=== PATIENT | male | born 1970 | race Caucasian/White ===

== ENCOUNTER 2021-06-25 10:06 | Outpatient (CLI) | payer BC, SELFPAY ==
--- NOTE | ~2021-06-25 | XR_ITS ---
XR thoracic spine 3V DATE: 06/25/2021 10:34 INDICATION: Thoracic spine strain, right thoracic back pain. TECHNIQUE: AP, lateral, swimmer views COMPARISON: None FINDINGS: There is minimal thoracic scoliosis. There is degenerative spurring of the thoracic spine. No fracture or dislocation or bone destruction. The thoracic pedicles are intact. No paraspinal soft tissue thickening. IMPRESSION: Minimal thoracic scoliosis Degenerative spurring of the thoracic spine Reviewed, dictated and finalized at location A. BOAT CAPTAIN
== END 2021-06-25 10:07 | disposition home or self-care (01) ==
LOC: ANHIMG 10:13
PROVIDERS: PCP Physician Assistant; Visit Provider Physician Assistant
DX: S29.019A Strain of muscle and tendon of unspecified wall of thorax, initial encounter (principal); M41.84 Other forms of scoliosis, thoracic region; M46.04 Spinal enthesopathy, thoracic region
CPT/HCPCS: 72072

== ENCOUNTER → 2021-08-11 02:02 | Outpatient (CLI) | payer BC, SELFPAY ==
[2021-08-11 20:49] LABS: SARS-CoV-2 RNA PCR Negative
== END ==
PROVIDERS: PCP Physician Assistant; Visit Provider Physician Assistant
DX: R09.89 Other specified symptoms and signs involving the circulatory and respiratory systems (principal); Z20.822 Contact with and (suspected) exposure to COVID-19
CPT/HCPCS: C9803; U0003; U0005

== ENCOUNTER 2021-10-05 11:56 | Outpatient (CLI) | payer BC, SELFPAY ==
--- NOTE | ~2021-10-05 | XR_ITS ---
EXAMINATION: XR shoulder RT min 2V, XR scapula RT EXAM DATE: 10/05/2021 12:15 INDICATION: Right shoulder pain. TECHNIQUE: The following right shoulder projections obtained: frontal projection with internal rotati on, frontal projection with external rotation, Grashey, and axillary (4+ views). Frontal, Y projectio ns of the right scapula. There are no prior studies for comparison. FINDINGS: No evidence of right shoulder rotator cuff calcific tendinosis. There is mild glenohumer al joint, mild acromioclavicular joint primary osteoarthritis. There are no acute fractures or disloc ations identified. There is no subcutaneous gas. The soft tissue is unremarkable. There are no ra diopaque foreign bodies. IMPRESSION: Mild right shoulder osteoarthritis. Unremarkable scapula. Reviewed, dictated and finalized at location B. NING CENTER COORDINATOR IMPRESSION: Mild right shoulder osteoarthritis. Unremarkable scapula.
== END 2021-10-05 11:57 | disposition home or self-care (01) ==
LOC: ANHIMG 11:58
PROVIDERS: PCP Physician Assistant; Visit Provider Physician Assistant
DX: M25.519 Pain in unspecified shoulder (principal); M19.011 Primary osteoarthritis, right shoulder
CPT/HCPCS: 73010; 73030

== ENCOUNTER 2025-02-27 12:29 | Outpatient (CLI) | payer OTHER, SELFPAY ==
--- NOTE | ~2025-02-27 | CT_ITS ---
CLINICAL INDICATION: Umbilical hernia COMPARISON: 11/04/2014 . TECHNIQUE: Multiple contiguous axial images of the abdomen and pelvis were performed following the ad ministration of with 100 mL Omnipaque-350 intravenous contrast The dose-length product (DLP) was 1133.40 mGy-cm. Automated exposure control and iterative reconstruction technique were employed. FINDINGS/OBSERVATIONS: Visualized lower thorax: The bilateral lung bases are clear. The heart is of normal size, without pericardial effusion. Small hiatal hernia is present. Liver: The liver demonstrates homogeneously decreased enhancement and is enlarged measuring 24 cm in longitu dinal dimension. Gallbladder and biliary system: The gallbladder is only minimally distended, and contains layering, but is otherwise unremarkable. Pancreas: The pancreas enhances homogeneously without ductal dilatation. Spleen: The spleen enhances homogeneously and is not enlarged. Kidneys: The bilateral kidneys enhance symmetrically without hydronephrosis or renal calculi. Adrenal glands: Unremarkable. Gastrointestinal tract: Fecal stasis within the colon. Appendix: The appendix is not definitively visualized. However, no pericecal inflammatory change is identified suggest the presence of acute appendicitis. Vasculature: Unremarkable. Lymph nodes: No pathologically enlarged or morphologically suspicious lymph nodes within the retroperitoneum or at the root of the mesentery. Pelvic structures: The bladder is only minimally distended, and otherwise unremarkable. The prostate gland is not enlarged. Body wall and musculoskeletal: Multilobulated fat and likely omental containing umbilical hernia with infiltration of the adjacent f at and soft tissues. Age-appropriate degenerative disease within the lower thoracic and lumbosacral spine. IMPRESSION: Multilobulated fat and likely omental containing umbilical hernia with infiltration of the adjacent f at and soft tissues. Cholelithiasis. Fatty infiltration of an enlarged liver. Reviewed, dictated and finalized at location A. IMPRESSION: Multilobulated fat and likely omental containing umbilical hernia with infiltra tion of the adjacent fat and soft tissues. Cholelithiasis. Fatty infiltration of an enlarged liver.
[2025-02-27 13:03] LABS: Estimated Glomerular Filt Rate > 60
== END 2025-02-27 12:30 | disposition home or self-care (01) ==
LOC: MICIMG 12:31
PROVIDERS: PCP Physician Assistant; Visit Provider Physician Assistant
DX: K42.9 Umbilical hernia without obstruction or gangrene (principal); K80.20 Calculus of gallbladder without cholecystitis without obstruction; K76.0 Fatty (change of) liver, not elsewhere classified
CPT/HCPCS: 74177; Q9967

== ENCOUNTER 2025-07-22 00:19 | Day surgery (SDC) | payer OTHER, SELFPAY ==
[2025-07-18 15:05] VITALS: BMI 40.1
--- NOTE | 2025-07-18 15:14 | PC.NURSE ---
[facility] has started construction of its new state of the art ER which will open Spring 2026. With this, we anticipate parking may be a challenge for some our surgical patients and families. Parking spaces are limited but are available for all Surgical, obstetrics, and ER patients sharing this lot. If you arrive and find you are having a hard time finding a parking space, please note that we understand the challenges, please drive around the hospital and park near Hospital Entrance 1. When you enter this entrance, you can ask a volunteer to direct or take you back to the surgical waiting area to check in. We appreciate everyone?s understanding of these expected challenges while we build for your future. Report to the Outpatient Waiting Room, entrance under the green pavilion located off [address], at time _06:00am on date ____07/22/25___. Planned Procedure Time: ___07:30am .? Time changes happen often and if your time is changed the preop area will call you the afternoon before. - You and your visitor will be asked to self-screen and do not enter if you have any COVID symptoms. Please call surgeon if you need to reschedule. - A mask is optional within the hospital at this time. Patients may have clear liquids (water, carbonated beverages, clear teas, apple juice) until 3 hours prior to surgery with a maximum of 20 ounces. - No food from midnight until time of surgery and no smoking, or chewing tobacco (or any form of nicotine). No chewing gum, candy or mints. (04:30am) Take only the following medications with a SIP of water on the morning of surgery: ____Singulair DO NOT STOP ANY OF YOUR OTHER PRESCRIPTION MEDICATIONS PRIOR TO SURGERY EXCEPT THE FOLLOWING Hold all vitamins and supplements for 3 days per anesthesiologist. Date of last dose 07/18/25 Medications to discontinue per physician HOLD Eliquis for [address] ISLAS Date to take last dose_07/18/25 Please no make-up, nail icelandic, hairspray, perfume, deodorant, or body powder the day of surgery.? No jewelry (including any body piercings) or valuables the day of surgery, leave them at home.? Please take a shower or bath the night before, or the morning of, surgery with an antibacterial soap.? Wear comfortable, loose fitting clothing.? - Jewelry must be removed prior to entering the operating room.? Rings and piercings that are not removed may be cut off. - The hospital will not accept responsibility for valuables.? - Please leave all valuables, including medications, at home the day of surgery. If you are going home after surgery, a licensed production truck driver must drive you home.? - NO public transportation without another adult if you receive anesthesia. - We recommend that an adult stay with you for 24 hours following discharge. - We also recommend that you do not drive, make important decision, drink alcoholic beverages, or take any drugs that were not prescribed by your health care provider for at least 24 hours after your discharge time. Follow any additional instructions given to you from your surgeon. Telephone instructions given to ___Patient and asked if any additional questions and then verbalized understanding. Patient advised to call surgeon office or pre surgery nurse liaison [phone] if any additional questions.
[2025-07-22] VITALS (8 sets, daily range): BP systolic 123–136; BP diastolic 74–93; PULSE 65–89; RESP 14–21; TEMP 36.5–37; O2SAT 93–100
--- OUTSIDE RECORDS SUMMARY | 2025-07-22 00:22 | XMS_ITS | Data Portability ---
Author Organization [facility], Main Office Address [address] [place] [address] Assessment No assessment recorded. Plan of Treatment Reminders Order Date Submit Date Provider Last Modified By Organization Details Last Modified Time Details Appointments None recorded. Lab testostero ne, free + total, serum 2022 024 [email or web address] [facility], [address], [place], [address], 5 09:23:46 TSH + free T4, serum 2022 024 [email or web address] [facility], [address], [place], [address], 5 09:23:46 CBC w/ auto diff 2022 024 [email or web address] [facility], [address], [place], [address], 5 09:23:46 CMP, serum or plasma 2022 024 [email or web address] [facility], [address], [place], [address], 5 09:23:46 HbA1c (hemoglobi n A1c), blood 2022 024 [email or web address] [place] [facility], [address], [place], [address], 5 09:23:46 lipid panel, serum 2022 024 [email or web address] [facility], [address], [address], [place], [address], 5 09:23:46 PSA, serum or plasma 2022 023 [place] [facility], [address], [address], [place], [address], 13:45:27 testostero ne, free + total, serum 2022 023 [place] [facility], [address], [address], [place], [address], 13:45:28 TSH + free T4, serum 2022 023 KRISTEN [place] [facility], [address], [address], [place], [address], 3 13:45:20 CBC w/ auto diff 2022 023 [email or web address] [facility], [address], [address], [place], [address], 13:45:25 CMP, serum or plasma 2022 023 [place] [facility], [address], [place], [address], 3 13:45:22 urinalysis , complete 2022 023 [place] [facility], [address], [place], [address], 3 13:45:26 HbA1c (hemoglobi n A1c), blood 2022 023 [place] [facility], [address], [place], [address], 3 13:45:24 microalbum in/creatin ine, mass ratio, urine 2022 023 [facility] [place] [facility], [address], [place], [address], 3 13:45:19 lipid panel, serum 2022 023 [facility] [place] [facility], [address], [place], [address], 3 13:45:21 Referral None recorded. Procedures None recorded. Surgeries None recorded. Imaging None recorded. Medication Orders None recorded. Patient TargetsNo targets recorded. Patient InstructionsNo instructions recorded. Reason for Referral None Reported. Results Created Date Observation Date Name Description Value Unit Range Abnormal Flag Note LastModifiedBy Organization Detail LastModifiedTime 09/15/19 22 09/17/2021 CULTU RE, URINE , ROUTI NE culture, urine, routine CULTU RE, URINE , ROUTI NE Micro Numbe r: [id number] Test Statu s: Final Speci men Sourc e: Urine , clean catch Speci men Quali ty: Adequ ate Resul t: No Growt h Not Available [facility] [address] [place], [address], 09/17/2021 19:36:22 09/15/19 22 09/17/2021 TESTO STERO NE, TOTAL , MS testosterone , total, MS 280 NG/dL 250-11 00 Men with clini rey signi fican t hypog onada l sympt oms and testo stero ne value s repea tedly in the range of the 200-3 00 ng/dL or less, may benef it from teste makenzie treat ment after adequ ate risk and benef its couns eling . For addit ional lisa arevalo e refer to https ://ed rolyati on.qu faiza ConsumerBell. com/f aq/To Mekhi rodriguez LCMSM S (This link is being provi ded for infor alonzo nal/e ducat ional purpo ses only. ) (Note ) This test was devel oped and its shreya tical perfo rmanc e jaime cteri stics have been deter mined by [employer]. It has not been clear ed or appro nhi by the FDA. This assay has been valid ated pursu ant to the CLIA regul ation s and is used for clini laura purpo ses. [facility] med jermaine n [address] [facility] [address] [place] [address] [phone] Leonel levin MD Not Available [place] [facility] [address] [place], [address], 09/17/2021 19:36:22 09/15/19 22 09/17/2021 PSA, TOTAL PSA, total 0.16 NG/mL < or = 4.00 normal The total PSA value from this assay syste m is stand ardiz ed again st the WHO stand robert. The test resul t will be appro ximat aaron 20% lower when bradford red to the equim olar- stand ardiz ed total PSA (Gould man Coult er). Bradford rison of seria l PSA resul ts shoul d be inter prete d with this fact in mind. This test was perfo rmed using the Sieme ns chemi lumin escen t metho d. Value s obtai flavio from diffe rent assay metho ds canno t be used inter barrera eably . PSA level s, regar dless of value , shoul d not be inter prete d as absol [place] evide nce of the prese nce or absen ce of disea se. Not Available [facility] [address] [place], [address], 09/17/2021 19:36:21 09/15/19 22 09/17/2021 CBC (INCL UDES DIFF/ PLT) white blood cell count 8.0 thous and/u L 3.8-10 .8 normal Not Available [facility] [address] [place], [address], 09/17/2021 19:36:21 09/15/19 22 09/17/2021 CBC (INCL UDES DIFF/ PLT) red blood cell count 5.06 miki on/uL 4.20-5 .80 normal Not Available [address], [address], 09/17/2021 19:36:21 09/15/19 22 09/17/2021 CBC (INCL UDES DIFF/ PLT) hemoglobin 14.9 g/dL 13.2-1 7.1 normal Not Available [address], [address], 09/17/2021 19:36:21 09/15/19 22 09/17/2021 CBC (INCL UDES DIFF/ PLT) hematocrit 44.9 % 38.5-5 0.0 normal Not Available [address], [address], 09/17/2021 19:36:21 09/15/19 22 09/17/2021 CBC (INCL UDES DIFF/ PLT) MCV 88.7 fL 80.0-1 00.0 normal Not Available [address], [address], 09/17/2021 19:36:21 09/15/19 22 09/17/2021 CBC (INCL UDES DIFF/ PLT) MCH 29.4 pg 27.0-3 3.0 normal Not Available [address], [address], 09/17/2021 19:36:21 09/15/19 22 09/17/2021 CBC (INCL UDES DIFF/ PLT) MCHC 33.2 g/dL 32.0-3 6.0 normal Not Available [address], [address], 09/17/2021 19:36:21 09/15/19 22 09/17/2021 CBC (INCL UDES DIFF/ PLT) RDW 12.2 % 11.0-1 5.0 normal Not Available [address], [address], 09/17/2021 19:36:21 09/15/19 22 09/17/2021 CBC (INCL UDES DIFF/ PLT) platelet count 231 thous and/u L 140-40 0 normal Not Available [address], [address], 09/17/2021 19:36:21 09/15/19 22 09/17/2021 CBC (INCL UDES DIFF/ PLT) MPV 11.8 fL 7.5-12 .5 normal Not Available [address], [address], 09/17/2021 19:36:21 09/15/19 22 09/17/2021 CBC (INCL UDES DIFF/ PLT) absolute neutrophils 4904 cells /uL 1500-7 800 normal Not Available [address], [address], 09/17/2021 19:36:21 09/15/19 22 09/17/2021 CBC (INCL UDES DIFF/ PLT) absolute lymphocytes 2336 cells /uL 850-39 00 normal Not Available [address], [address], 09/17/2021 19:36:21 09/15/19 22 09/17/2021 CBC (INCL UDES DIFF/ PLT) absolute monocytes 592 cells /uL 200-95 0 normal Not Available [address], [address], 09/17/2021 19:36:21 09/15/19 22 09/17/2021 CBC (INCL UDES DIFF/ PLT) absolute eosinophils 120 cells /uL 15-500 normal Not Available [address], [address], 09/17/2021 19:36:21 09/15/19 22 09/17/2021 CBC (INCL UDES DIFF/ PLT) absolute basophils 48 cells /uL 0-200 normal Not Available [address], [address], 09/17/2021 19:36:21 09/15/19 22 09/17/2021 CBC (INCL UDES DIFF/ PLT) neutrophils 61.3 % normal Not Available [address], [address], 09/17/2021 19:36:21 09/15/19 22 09/17/2021 CBC (INCL UDES DIFF/ PLT) lymphocytes 29.2 % normal Not Available [address], [address], 09/17/2021 19:36:21 09/15/19 22 09/17/2021 CBC (INCL UDES DIFF/ PLT) monocytes 7.4 % normal Not Available [address], [address], 09/17/2021 19:36:21 09/15/19 22 09/17/2021 CBC (INCL UDES DIFF/ PLT) eosinophils 1.5 % normal Not Available [address], [address], 09/17/2021 19:36:21 09/15/19 22 09/17/2021 CBC (INCL UDES DIFF/ PLT) basophils 0.6 % normal Not Available [address], [address], 09/17/2021 19:36:21 09/15/19 22 09/17/2021 HEMOG LOBIN A1C hemoglobin A1C 7.3 %_of_ total _HGB <5.7 high For someo ne witho ut known diabe tuan, a hemog lobin A1c value of 6.5% or great er indic ates that they may have diabe tuan and this shoul d be confi rmed with a follo w-up test. For someo ne with known diabe tuan, a value <7% indic ates that their diabe tuan is well contr olled and a value great er than or equal to 7% indic ates subop timal contr ol. A1c targe ts shoul d be indiv idual ized based on durat ion of diabe tuan, age, comor bid condi tions , and other consi derat ions. Curre ntly, no conse nsus exist s regar ding use of hemog lobin A1c for diagn osis of diabe tuan for child ruth. Not Available [facility] [address] [place], [address], 09/17/2021 19:36:20 09/15/19 22 09/17/2021 COMPR EHENS KHADAR METAB OLIC PANEL glucose 126 mg/dL 65-99 high Fasti ng refer ence inter genet For someo ne witho ut known diabe tuan, a gluco se value >125 mg/dL indic ates that they may have diabe tuan and this shoul d be confi rmed with a follo w-up test. Not Available [facility] [place] [address] [place], [address], 09/17/2021 19:36:20 09/15/19 22 09/17/2021 COMPR EHENS KHADAR METAB OLIC PANEL urea nitrogen (BUN) 23 mg/dL 7-25 normal Not Available [facility] [address] [place], [address], 09/17/2021 19:36:20 09/15/19 22 09/17/2021 COMPR EHENS KHADAR METAB OLIC PANEL creatinine 0.92 mg/dL 0.60-1 .35 normal Not Available [facility] [address] [place], [address], 09/17/2021 19:36:20 09/15/19 22 09/17/2021 COMPR EHENS KHADAR METAB OLIC PANEL eGFR non-afr. north korean 98 mL/mi n/1.7 3m2 > or = 60 normal Not Available [place] [address] [place], [address], 09/17/2021 19:36:20 09/15/19 22 09/17/2021 COMPR EHENS KHADAR METAB OLIC PANEL eGFR 114 mL/mi n/1.7 3m2 > or = 60 normal Not Available [address], [address], 09/17/2021 19:36:20 09/15/19 22 09/17/2021 COMPR EHENS KHADAR METAB OLIC PANEL BUN/creatini ne ratio not applic able (calc ) 6-22 Not Available [address], [address], 09/17/2021 19:36:20 09/15/19 22 09/17/2021 COMPR EHENS KHADAR METAB OLIC PANEL sodium 136 mmol/ L 135-14 6 normal Not Available [address], [address], 09/17/2021 19:36:20 09/15/19 22 09/17/2021 COMPR EHENS KHADAR METAB OLIC PANEL potassium 3.9 mmol/ L 3.5-5. 3 normal Not Available [address], [address], 09/17/2021 19:36:20 09/15/19 22 09/17/2021 COMPR EHENS KHADAR METAB OLIC PANEL chloride 101 mmol/ L 98-110 normal Not Available [address], [address], 09/17/2021 19:36:20 09/15/19 22 09/17/2021 COMPR EHENS KHADAR METAB OLIC PANEL carbon dioxide 28 mmol/ L 20-32 normal Not Available [place] [address] [place], [address], 09/17/2021 19:36:20 09/15/19 22 09/17/2021 COMPR EHENS KHADAR METAB OLIC PANEL calcium 9.2 mg/dL 8.6-10 .3 normal Not Available [address], [address], 09/17/2021 19:36:20 09/15/19 22 09/17/2021 COMPR EHENS KHADAR METAB OLIC PANEL protein, total 7.5 g/dL 6.1-8. 1 normal Not Available [address], [address], 09/17/2021 19:36:20 09/15/19 22 09/17/2021 COMPR EHENS KHADAR METAB OLIC PANEL albumin 4.5 g/dL 3.6-5. 1 normal Not Available [address], [address], 09/17/2021 19:36:20 09/15/19 22 09/17/2021 COMPR EHENS KHADAR METAB OLIC PANEL globulin 3.0 g/dL_ (calc ) 1.9-3. 7 normal Not Available [address], [address], 09/17/2021 19:36:20 09/15/19 22 09/17/2021 COMPR EHENS KHADAR METAB OLIC PANEL albumin/glob ulin ratio 1.5 (calc ) 1.0-2. 5 normal Not Available [address], [address], 09/17/2021 19:36:20 09/15/19 22 09/17/2021 COMPR EHENS KHADAR METAB OLIC PANEL ALT 49 U/L 9-46 high Not Available [address], [address], 09/17/2021 19:36:20 09/15/19 22 09/17/2021 COMPR EHENS KHADAR METAB OLIC PANEL bilirubin, total 1.0 mg/dL 0.2-1. 2 normal Not Available [address], [address], 09/17/2021 19:36:20 09/15/19 22 09/17/2021 COMPR EHENS KHADAR METAB OLIC PANEL alkaline phosphatase 70 U/L 36-130 normal Not Available [facility] [address], [address], 09/17/2021 19:36:20 09/15/19 22 09/17/2021 COMPR EHENS KHADAR METAB OLIC PANEL AST 36 U/L 10-40 normal Not Available [address], [address], 09/17/2021 19:36:20 09/15/19 22 09/17/2021 LIPID PANEL WITH REFLE X TO DIREC T LDL cholesterol, total 119 mg/dL <200 normal Not Available [address], [address], 09/17/2021 19:36:20 09/15/19 22 09/17/2021 LIPID PANEL WITH REFLE X TO DIREC T LDL HDL cholesterol 32 mg/dL > or = 40 low Not Available [address], [address], 09/17/2021 19:36:20 09/15/19 22 09/17/2021 LIPID PANEL WITH REFLE X TO DIREC T LDL triglyceride s 120 mg/dL <150 normal Not Available [address], [address], 09/17/2021 19:36:20 09/15/19 22 09/17/2021 LIPID PANEL WITH REFLE X TO DIREC T LDL LDL-choleste rol 66 mg/dL _(laura c) normal Refer ence range : <100 Adry able range <100 mg/dL for prima ry preve ntion ; <70 mg/dL for patie nts with CHD or diabe tic patie nts with > or = 2 CHD risk facto rs. LDL-C is now calcu lated using the [facility] korey coughlin n, which is a valid ated novel metho d yanirai liz rylee r accur acy than the Fried jose equat ion in the estim ation of LDL-C . Roma mason SS et al. RADHA. 2013; 310(1 9): 2061- 2068 (http ://ed ucati on.Qu estDi Nohms Technologiesos Guest [employer] a Guests. com/f aq/FA Q164) Not Available [place] [address] [place], [address], 09/17/2021 19:36:20 09/15/19 22 09/17/2021 LIPID PANEL WITH REFLE X TO DIREC T LDL chol/HDLC ratio 3.7 (calc ) <5.0 normal Not Available [place] [address], [address], 09/17/2021 19:36:20 09/15/19 22 09/17/2021 LIPID PANEL WITH REFLE X TO DIREC T LDL non HDL cholesterol 87 mg/dL _(laura c) <130 normal For patie nts with diabe tuan plus 1 major ASCVD risk facto r, treat ing to a non-H DL-C goal of <100 mg/dL (LDL- C of <70 mg/dL ) is consi yanethd a austina peluisi c optio n. Not Available [place] [address] [place] [address] [place], [address], 09/17/2021 19:36:20 09/15/19 22 09/17/2021 TSH+F REE T4 TSH 1.22 mIU/L 0.40-4 .50 normal Not Available [facility] [address] [address] [place], [address], 09/17/2021 19:36:19 09/15/19 22 09/17/2021 TSH+F REE T4 T4, free 1.0 NG/dL 0.8-1. 8 normal Not Available [address], [address], 09/17/2021 19:36:19 09/15/19 22 09/17/2021 ALBUM IN, RANDO M URINE W/CRE ATINI NE albumin/crea tinine ratio, random urine 8 mcg/m g_cre at <30 normal The ADA defin es abnor malit ies in album in excre tion as follo ws: Album inuri a Categ ory Resul t (mcg/ mg creat inine ) Jennifer l to Mildl y incre ased <30 Moder ately incre ased 30-29 9 Sever aaron incre ased > OR = 300 The ADA recom mends that at least two of three speci mens colle cted withi n a 3-6 month perio d be abnor mal befor e consi sherlyn g a patie nt to be withi n a diagn ostic categ ory. Not Available [address] [place], [address], 09/17/2021 19:36:18 09/15/19 22 09/17/2021 ALBUM IN, RANDO M URINE W/CRE ATINI NE creatinine, random urine 86 mg/dL 20-320 normal Not Available [address], [address], 09/17/2021 19:36:18 09/15/19 22 09/17/2021 ALBUM IN, RANDO M URINE W/CRE ATINI NE albumin, urine 0.7 mg/dL see note: normal Refer ence Range : Refer ence Range Not estab lishe d Not Available [address], [address], 09/17/2021 19:36:18 06/25/20 22 06/25/2022 COLOG UARD cologuard result reportable negati ve negati ve NEGAT KHADAR TEST RESUL T. A negat khadar Colog uard resul t indic ates a low likel ihood that a color ectal cance r (CRC) or advan crystal adeno ma (mica omato us polyp s with more advan crystal pre-m align ant featu res) is prese nt. The [facility] e that a perso n with a negat khadar Colog uard test has a color ectal cance r is less than 1 in 1500 (nega tive predi ctive value >99.9 %) or has an advan crystal adeno ma is less than 5.3% (nega tive predi ctive value 94.7% ). These data are based on a prosp ectiv e cross -sect ional study of ,00 0 indiv idual s at [place] risk for color ectal cance r who were scree flavio with both Colog uard and colon oscop y. (Roshan Loving et al, N Engl J Med 2014; 370(1 4):12 86-12 97) The jennifer l value (refe rence range ) for this assay is negat khadar. COLOG UARD RE-SC REELIZ ALMAZAN RECOM MENDA TION: Perio dic color ectal cance r scree apoorva is an impor tant part of preve ntive healt hcare for asymp tomat ic indiv idual s at [place] risk for color ectal cance r. Follo wing a negat khadar Colog uard resul t, the Ameri can Cance r Socie ty and U.S. Multi -Soci ety Task Force scree apoorva guide lines recom mend a Colog uard re-sc reeliz almazan inter genet of 3 years . Refer ences : Ameri can Cance r Socie ty Guide line for Color ectal Cance r Scree apoorva: https ://ww w.can cer.o rg/ca ncer/ colon -rect al-ca ncer/ detec tion- diagn osis- stagi ng/ac s-rec ommen datio ns.ht ml.; Aj HAMILTON, Jolene HUFFMAN, Julio Cesar BARNETT, Color ectal Cance r Scree apoorva: Recom menda tions for Physi cians and Patie nts from the U.S. Multi -Soci ety Task Force on Color ectal Cance r Scree apoorva , Am J Magy shoemakernte rolog y 2017; 112:1 016-1 030. TEST DESCR IPTIO N: [place] site algor ithmi c shreya sis of stool DNA-b coco alfredo with hemog lobin immun oassa y. Quant itati ve value s of indiv idual bioma rkers are not repor table and are not assoc iated with indiv idual bioma rker resul t refer ence range s. Colog uard is inten ded for color ectal cance r scree apoorva of adult s of eithe r sex, 45 years or older , who are at [facility] for color ectal cance r (CRC) . Colog uard has been appro nhi for use by the U.S. FDA. The perfo rmanc e of Colog uard was estab lishe d in a cross secti onal study of [facility] adult s aged 50-84 . Colog uard perfo rmanc e in patie nts ages 45 to 49 years was estim ated by sub-g roup shreya sis of near- age group s. Colon oscop ies perfo rmed for a posit khadar resul t may find as the most clini rey signi connie trammell lesio n: color ectal cance r [4.0% ], advan crystal adeno ma (incl uding sessi le jayshree aure polyp s great er than or equal to 1cm diame ter) [20%] or non- advan crystal adeno ma [31%] ; or no color ectal neopl melvin [45%] . These estim ates are deriv ed from a prosp ectiv e cross -sect ional scree apoorva study of ,00 0 indiv idual s at [facility] risk for color ectal cance r who were scree flavio with both Colog uard and colon oscop y. (Roshan [place] al, N Engl J Med 2014; 370(1 4):12 86-12 97.) Colog uard may produ ce a false negat khadar or false posit khadar resul t (no color ectal cance r or preca ncero us polyp prese nt at colon oscop y follo w up). A negat khadar Colog uard test resul t does not guara ntee the absen ce of CRC or advan crystal adeno ma (pre- cance r). The curre nt Colog uard scree apoorva inter genet is every 3 years . (Ammello ican Cance r Socie ty and U.S. Multi -Soci ety Task Force ). Colog uard perfo rmanc e data in a 10,00 0 patie nt pivot al study using colon oscop y as the refer ence metho d can be acces sed at the follo wing locat ion: www.e xactl abs.c om/re sults . Addit ional descr iptio n of the Colog uard test proce ss, warni ngs and preca ution s can be found at www.c nixonu robert.c om. Not Available [facility] [address], [place], [address], 06/30/2022 05:38:51 10/30/19 23 10/30/2022 LIPID PANEL WITH RATIO S cholesterol, total 108 mg/dL <200 normal Not Available [facility] [address] [address] [place], [address], 10/30/2022 12:06:11 10/30/19 23 10/30/2022 LIPID PANEL WITH RATIO S HDL cholesterol 32 mg/dL > or = 40 low Not Available [facility] [address] [place], [address], 10/30/2022 12:06:11 10/30/19 23 10/30/2022 LIPID PANEL WITH RATIO S triglyceride s 121 mg/dL <150 normal Not Available [facility] [address] [place], [address], 10/30/2022 12:06:11 10/30/19 23 10/30/2022 LIPID PANEL WITH RATIO S LDL-choleste rol 56 mg/dL _(laura c) normal Refer ence range : <100 Adry able range <100 mg/dL for prima ry preve ntion ; <70 mg/dL for patie nts with CHD or diabe tic patie nts with > or = 2 CHD risk facto rs. LDL-C is now calcu lated using the [facility] kins korey mason, which is a valid ated novel getachew lopez than the Fried jose tobiasat ion in the estim ation of LDL-C . Roma mason SS et al. RADHA. 2013; 310(1 9): 2061- 2068 (http ://ed ucati on.Qu Faiza evelinaDecisionPoint Systemss. com/f aq/FA Q164) Not Available [facility] [address] [place], [address], 10/30/2022 12:06:11 10/30/1910/30/2022 LIPID PANEL WITH RATIO S chol/HDLC ratio 3.4 (calc ) <5.0 normal Not Available [facility] [address] [address] [place], [address], 10/30/2022 12:06:11 10/30/19 23 10/30/2022 LIPID PANEL WITH RATIO S LDL/HDL ratio 1.8 (calc ) [place] Risk: <2.28 [place] Risk: 2.29- 4.90 Moder ate Risk: 4.91- 7.12 High Risk: >7.13 Not Available [facility] [address] [place], [address], 10/30/2022 12:06:11 10/30/19 23 10/30/2022 LIPID PANEL WITH RATIO S non HDL cholesterol 76 mg/dL _(laura c) <130 normal For patie nts with diabe tuan plus 1 major ASCVD risk facto r, treat ing to a non-H DL-C goal of <100 mg/dL (LDL- C of <70 mg/dL ) is devin blake optio n. Not Available [facility] [address] [address] [place], [address], 10/30/2022 12:06:11 0310/30/2022 BASIC METAB OLIC PANEL glucose 102 mg/dL 65-99 high Fasti ng refer ence inter genet For someo ne witho ut known diabe tuan, a gluco se value betwe en 100 and 125 mg/dL is consi stent with predi abete s and shoul d be confi rmed with a follo w-up test. Not Available [facility] [address] [address] [place], [address], 10/30/2022 12:06:12 10/30/1910/30/2022 BASIC METAB OLIC PANEL urea nitrogen (BUN) 19 mg/dL 7-25 normal Not Available [address], [address], 10/30/2022 12:06:12 10/30/1910/30/2022 BASIC METAB OLIC PANEL creatinine 0.93 mg/dL 0.60-1 .29 normal Not Available [facility] [place] [address] [place], [address], 10/30/2022 12:06:12 10/30/1910/30/2022 BASIC METAB OLIC PANEL eGFR 101 mL/mi n/1.7 3m2 > or = 60 normal The eGFR is based on the CKD-E PI 2020 equat ion. To calcu late the new eGFR from a previ ous Creat inine or Cysta tin C resul t, go to https ://triny oseguera/luli wolf s/ kdoqi /gfr% 5Fcal culat or Not Available [facility] [address] [address] [place], [address], 10/30/2022 12:06:12 10/30/1910/30/2022 BASIC METAB OLIC PANEL BUN/creatini ne ratio NOT APPLIC ABLE (calc ) 6-22 Not Available [facility] [address] [address] [place], [address], 10/30/2022 12:06:12 10/30/1910/30/2022 BASIC METAB OLIC PANEL sodium 137 mmol/ L 135-14 6 normal Not Available [address], [address], 10/30/2022 12:06:12 10/30/1910/30/2022 BASIC METAB OLIC PANEL potassium 4.1 mmol/ L 3.5-5. 3 normal Not Available [address], [address], 10/30/2022 12:06:12 10/30/1910/30/2022 BASIC METAB OLIC PANEL chloride 103 mmol/ L 98-110 normal Not Available [address], [address], 10/30/2022 12:06:12 10/30/1910/30/2022 BASIC METAB OLIC PANEL carbon dioxide 26 mmol/ L 20-32 normal Not Available [address], [address], 10/30/2022 12:06:12 10/30/1910/30/2022 BASIC METAB OLIC PANEL calcium 8.9 mg/dL 8.6-10 .3 normal Not Available [address], [address], 10/30/2022 12:06:12 10/30/1910/30/2022 HEMOG LOBIN A1C hemoglobin A1C 6.2 %_of_ total _HGB <5.7 high For someo ne witho ut known diabe tuan, a hemog lobin A1c value betwe en 5.7% and 6.4% is consi stent with predi abete s and shoul d be confi rmed with a follo w-up test. For someo ne with known diabe tuan, a value <7% indic ates that their diabe tuan is well contr olled . A1c targe ts shoul d be indiv idual ized based on durat ion of diabe tuan, age, comor bid condi tions , and other consi derat ions. This assay resul t is consi stent with an incre ased risk of diabe tuan. Curre ntly, no conse nsus exist s [place] use of hemog lobin A1c for diagn osis of diabe tuan for child ruth. Not Available [address] [address] [place], [address], 10/30/2022 12:06:13 10/30/19 23 10/30/2022 HEPAT IC FUNCT ION PANEL protein, total 7.4 g/dL 6.1-8. 1 normal Not Available [address], [address], 10/30/2022 12:06:13 10/30/1910/30/2022 HEPAT IC FUNCT ION PANEL albumin 4.2 g/dL 3.6-5. 1 normal Not Available [facility] [address] [address] [place], [address], 10/30/2022 12:06:13 10/30/19 23 10/30/2022 HEPAT IC FUNCT ION PANEL globulin 3.2 g/dL_ (calc ) 1.9-3. 7 normal Not Available [address] [address] [place], [address], 10/30/2022 12:06:13 10/30/19 23 10/30/2022 HEPAT IC FUNCT ION PANEL albumin/glob ulin ratio 1.3 (calc ) 1.0-2. 5 normal Not Available [facility] [address] [address] [place], [address], 10/30/2022 12:06:13 10/30/1910/30/2022 HEPAT IC FUNCT ION PANEL bilirubin, total 1.0 mg/dL 0.2-1. 2 normal Not Available [facility] [address] [address] [place], [address], 10/30/2022 12:06:13 10/30/19 23 10/30/2022 HEPAT IC FUNCT ION PANEL bilirubin, direct 0.2 mg/dL < or = 0.2 normal Not Available [address], [address], 10/30/2022 12:06:13 10/30/19 23 10/30/2022 HEPAT IC FUNCT ION PANEL bilirubin, indirect 0.8 mg/dL _(laura c) 0.2-1. 2 normal Not Available [address], [address], 10/30/2022 12:06:13 10/30/1910/30/2022 HEPAT IC FUNCT ION PANEL alkaline phosphatase 77 U/L 36-130 normal Not Available [address], [address], 10/30/2022 12:06:13 10/30/1910/30/2022 HEPAT IC FUNCT ION PANEL AST 26 U/L 10-40 normal Not Available [address], [address], 10/30/2022 12:06:13 10/30/19 23 10/30/2022 HEPAT IC FUNCT ION PANEL ALT 38 U/L 9-46 normal Not Available [address], [address], 10/30/2022 12:06:13 06/03/2006/07/2023 ALBUM IN, RANDO M URINE W/CRE ATINI NE creatinine, random urine 82 mg/dL 20-320 normal Not Available [address], [address], 06/07/2023 13:45:19 06/03/2006/07/2023 ALBUM IN, RANDO M URINE W/CRE ATINI NE albumin, urine 2.2 mg/dL see note: normal Refer ence Range : Refer ence Range Not estab lishe d Not Available [address], [address], 06/07/2023 13:45:19 06/03/2006/07/2023 ALBUM IN, RANDO M URINE W/CRE ATINI NE albumin/crea tinine ratio, random urine 27 mcg/m g_cre at <30 normal The ADA defin es abnor malit ies in album in excre tion as follo ws: Album inuri a Categ ory Resul t (mcg/ mg creat inine ) Jennifer l to Mildl y incre ased <30 Moder ately incre ased 30-29 9 Sever aaron incre ased > OR = 300 The ADA recom mends that at least two of three speci mens colle cted withi n a 3-6 month perio d be abnor mal befor e consi sherlyn g a patie nt to be withi n a diagn ostic categ ory. Not Available [address], [address], 06/07/2023 13:45:19 06/03/20 23 06/07/2023 TSH+F REE T4 TSH 1.36 mIU/L 0.40-4 .50 normal Not Available [address], [address], 06/07/2023 13:45:20 06/03/20 23 06/07/2023 TSH+F REE T4 T4, free 0.9 NG/dL 0.8-1. 8 normal Not Available [address], [address], 06/07/2023 13:45:20 06/03/20 23 06/07/2023 LIPID PANEL WITH RATIO S cholesterol, total 115 mg/dL <200 normal Not Available [address], [address], 06/07/2023 13:45:21 06/03/20 23 06/07/2023 LIPID PANEL WITH RATIO S HDL cholesterol 31 mg/dL > or = 40 low Not Available [address] [address] [place], [address], 06/07/2023 13:45:21 06/03/20 23 06/07/2023 LIPID PANEL WITH RATIO S triglyceride s 149 mg/dL <150 normal Not Available [address] [address] [place], [address], 06/07/2023 13:45:21 06/03/20 23 06/07/2023 LIPID PANEL WITH RATIO S LDL-choleste rol 61 mg/dL _(laura c) normal Refer ence range : <100 Adry able range <100 mg/dL for prima ry preve ntion ; <70 mg/dL for patie nts with CHD or diabe tic patie nts with > or = 2 CHD risk facto rs. LDL-C is now calcu lated using the Roma n-Hop kins calcu madyson n, which is a valid ated novel getachew mckee r accur acy than the Fried jose equat ion in the estim ation of LDL-C . Roma mason SS et al. RADHA. 2013; 310(1 9): 2061- 2068 (http ://ed ucati on.Juan Antonio oMdi ConsumerBell. com/f aq/FA Q164) Not Available [address] [address] [place], [address], 06/07/2023 13:45:21 06/03/20 23 06/07/2023 LIPID PANEL WITH RATIO S chol/HDLC ratio 3.7 (calc ) <5.0 normal Not Available [address] [address] [place], [address], 06/07/2023 13:45:21 06/03/20 23 06/07/2023 LIPID PANEL WITH RATIO S LDL/HDL ratio 2.0 (calc ) Below [place] Risk: <2.28 [place] Risk: 2.29- 4.90 Moder ate Risk: 4.91- 7.12 High Risk: >7.13 Not Available [address] [address] [place], [address], 06/07/2023 13:45:21 06/03/2006/07/2023 LIPID PANEL WITH RATIO S non HDL cholesterol 84 mg/dL _(laura c) <130 normal For patie nts with diabe tuan plus 1 major ASCVD risk facto r, treat ing to a non-H DL-C goal of <100 mg/dL (LDL- C of <70 mg/dL ) is consi dered a thera peuti c optio n. Not Available [address] [address] [place], [address], 06/07/2023 13:45:21 06/03/20 23 06/07/2023 COMPR EHENS KHADAR METAB OLIC PANEL glucose 87 mg/dL 65-99 normal Fasti ng refer ence inter genet Not Available [address] [address] [place], [address], 06/07/2023 13:45:22 06/03/20 23 06/07/2023 COMPR EHENS KHADAR METAB OLIC PANEL urea nitrogen (BUN) 21 mg/dL 7-25 normal Not Available [address], [address], 06/07/2023 13:45:22 06/03/20 23 06/07/2023 COMPR EHENS KHADAR METAB OLIC PANEL creatinine 0.86 mg/dL 0.70-1 .30 normal Not Available [address] [address] [place], [address], 06/07/2023 13:45:22 06/03/20 23 06/07/2023 COMPR EHENS KHADAR METAB OLIC PANEL eGFR 105 mL/mi n/1.7 3m2 > or = 60 normal Not Available [address] [address] [place], [address], 06/07/2023 13:45:22 06/03/20 23 06/07/2023 COMPR EHENS KHADAR METAB OLIC PANEL BUN/creatini ne ratio SEE NOTE: (calc ) 6-22 Not Repor aure: BUN and Creat inine are withi n refer ence range . Not Available [address], [address], 06/07/2023 13:45:22 06/03/20 23 06/07/2023 COMPR EHENS KHADAR METAB OLIC PANEL sodium 136 mmol/ L 135-14 6 normal Not Available [address], [address], 06/07/2023 13:45:22 06/03/20 23 06/07/2023 COMPR EHENS KHADAR METAB OLIC PANEL potassium 4.1 mmol/ L 3.5-5. 3 normal Not Available [address], [address], 06/07/2023 13:45:22 06/03/20 23 06/07/2023 COMPR EHENS KHADAR METAB OLIC PANEL chloride 103 mmol/ L 98-110 normal Not Available [address], [address], 06/07/2023 13:45:22 06/03/20 23 06/07/2023 COMPR EHENS KHADAR METAB OLIC PANEL carbon dioxide 25 mmol/ L 20-32 normal Not Available [address], [address], 06/07/2023 13:45:22 06/03/20 23 06/07/2023 COMPR EHENS KHADAR METAB OLIC PANEL calcium 9.2 mg/dL 8.6-10 .3 normal Not Available [address], [address], 06/07/2023 13:45:22 06/03/20 23 06/07/2023 COMPR EHENS KHADAR METAB OLIC PANEL protein, total 7.6 g/dL 6.1-8. 1 normal Not Available [address], [address], 06/07/2023 13:45:22 06/03/20 23 06/07/2023 COMPR EHENS KHADAR METAB OLIC PANEL albumin 4.3 g/dL 3.6-5. 1 normal Not Available [address], [address], 06/07/2023 13:45:22 06/03/20 23 06/07/2023 COMPR EHENS KHADAR METAB OLIC PANEL globulin 3.3 g/dL_ (calc ) 1.9-3. 7 normal Not Available [address], [address], 06/07/2023 13:45:22 06/03/20 23 06/07/2023 COMPR EHENS KHADAR METAB OLIC PANEL albumin/glob ulin ratio 1.3 (calc ) 1.0-2. 5 normal Not Available [address], [address], 06/07/2023 13:45:22 06/03/20 23 06/07/2023 COMPR EHENS KHADAR METAB OLIC PANEL bilirubin, total 0.8 mg/dL 0.2-1. 2 normal Not Available [address], [address], 06/07/2023 13:45:22 06/03/20 23 06/07/2023 COMPR EHENS KHADAR METAB OLIC PANEL alkaline phosphatase 73 U/L 35-144 normal Not Available [address] [address] [place], [address], 06/07/2023 13:45:22 06/03/20 23 06/07/2023 COMPR EHENS KHADAR METAB OLIC PANEL AST 28 U/L 10-35 normal Not Available [address], [address], 06/07/2023 13:45:22 06/03/20 23 06/07/2023 COMPR EHENS KHADAR METAB OLIC PANEL ALT 40 U/L 9-46 normal Not Available [address], [address], 06/07/2023 13:45:22 06/03/20 23 06/07/2023 HEMOG LOBIN A1C hemoglobin A1C 5.9 %_of_ total _HGB <5.7 high For someo ne witho ut known diabe tuan, a hemog lobin A1c value betwe en 5.7% and 6.4% is consi stent with predi abete s and shoul d be confi rmed with a follo w-up test. For someo ne with known diabe tuan, a value <7% indic ates that their diabe tuan is well contr olled . A1c targe ts shoul d be indiv idual ized based on durat ion of diabe tuan, age, comor bid condi tions , and other consi derat ions. This assay resul t is consi stent with an incre ased risk of diabe tuan. Curre ntly, no conse nsus exist s regar ding use of hemog lobin A1c for diagn osis of diabe tuan for child ruth. Not Available [address], [address], 06/07/2023 13:45:24 06/03/20 23 06/07/2023 CBC (INCL UDES DIFF/ PLT) white blood cell count 10.7 thous and/u L 3.8-10 .8 normal Not Available [facility] [address] [address] [place], [address], 06/07/2023 13:45:25 06/03/20 23 06/07/2023 CBC (INCL UDES DIFF/ PLT) red blood cell count 5.43 miki on/uL 4.20-5 .80 normal Not Available [facility] [address] [address] [place], [address], 06/07/2023 13:45:25 06/03/2006/07/2023 CBC (INCL UDES DIFF/ PLT) hemoglobin 16.3 g/dL 13.2-1 7.1 normal Not Available [address], [address], 06/07/2023 13:45:25 06/03/2006/07/2023 CBC (INCL UDES DIFF/ PLT) hematocrit 48.8 % 38.5-5 0.0 normal Not Available [address], [address], 06/07/2023 13:45:25 06/03/2006/07/2023 CBC (INCL UDES DIFF/ PLT) MCV 89.9 fL 80.0-1 00.0 normal Not Available [address], [address], 06/07/2023 13:45:25 06/03/20 23 06/07/2023 CBC (INCL UDES DIFF/ PLT) MCH 30.0 pg 27.0-3 3.0 normal Not Available [address], [address], 06/07/2023 13:45:25 06/03/20 23 06/07/2023 CBC (INCL UDES DIFF/ PLT) MCHC 33.4 g/dL 32.0-3 6.0 normal Not Available [address], [address], 06/07/2023 13:45:25 06/03/2006/07/2023 CBC (INCL UDES DIFF/ PLT) RDW 13.2 % 11.0-1 5.0 normal Not Available [address], [address], 06/07/2023 13:45:25 06/03/20 23 06/07/2023 CBC (INCL UDES DIFF/ PLT) platelet count 236 thous and/u L 140-40 0 normal Not Available [address] [place], [address], 06/07/2023 13:45:25 06/03/2006/07/2023 CBC (INCL UDES DIFF/ PLT) MPV 11.5 fL 7.5-12 .5 normal Not Available [address], [address], 06/07/2023 13:45:25 06/03/2006/07/2023 CBC (INCL UDES DIFF/ PLT) absolute neutrophils 7458 cells /uL 1500-7 800 normal Not Available [address], [address], 06/07/2023 13:45:25 06/03/2006/07/2023 CBC (INCL UDES DIFF/ PLT) absolute lymphocytes 2247 cells /uL 850-39 00 normal Not Available [address], [address], 06/07/2023 13:45:25 06/03/2006/07/2023 CBC (INCL UDES DIFF/ PLT) absolute monocytes 749 cells /uL 200-95 0 normal Not Available [address], [address], 06/07/2023 13:45:25 06/03/2006/07/2023 CBC (INCL UDES DIFF/ PLT) absolute eosinophils 182 cells /uL 15-500 normal Not Available [address], [address], 06/07/2023 13:45:25 06/03/2006/07/2023 CBC (INCL UDES DIFF/ PLT) absolute basophils 64 cells /uL 0-200 normal Not Available [address], [address], 06/07/2023 13:45:25 06/03/2006/07/2023 CBC (INCL UDES DIFF/ PLT) neutrophils 69.7 % normal Not Available [address], [address], 06/07/2023 13:45:25 06/03/2006/07/2023 CBC (INCL UDES DIFF/ PLT) lymphocytes 21.0 % normal Not Available [address], [address], 06/07/2023 13:45:25 06/03/20 23 06/07/2023 CBC (INCL UDES DIFF/ PLT) monocytes 7.0 % normal Not Available [address], [address], 06/07/2023 13:45:25 06/03/2006/07/2023 CBC (INCL UDES DIFF/ PLT) eosinophils 1.7 % normal Not Available [address], [address], 06/07/2023 13:45:25 06/03/2006/07/2023 CBC (INCL UDES DIFF/ PLT) basophils 0.6 % normal Not Available [address], [address], 06/07/2023 13:45:25 06/03/2006/07/2023 URINA LYSIS ,COMP LETE( REFL) color YELLOW yellow normal Not Available [address], [address], 06/07/2023 13:45:26 06/03/2006/07/2023 URINA LYSIS ,COMP LETE( REFL) appearance CLEAR clear normal Not Available [address], [address], 06/07/2023 13:45:26 06/03/2006/07/2023 URINA LYSIS ,COMP LETE( REFL) specific gravity 1.028 1.001- 1.035 normal Not Available [address], [address], 06/07/2023 13:45:26 06/03/20 23 06/07/2023 URINA LYSIS ,COMP LETE( REFL) pH < OR = 5.0 5.0-8. 0 normal Not Available [address], [address], 06/07/2023 13:45:26 06/03/20 23 06/07/2023 URINA LYSIS ,COMP LETE( REFL) glucose 3+ negati ve abnormal Not Available [address], [address], 06/07/2023 13:45:26 06/03/2006/07/2023 URINA LYSIS ,COMP LETE( REFL) bilirubin NEGATI VE negati ve normal Not Available [address], [address], 06/07/2023 13:45:26 06/03/20 23 06/07/2023 URINA LYSIS ,COMP LETE( REFL) ketones NEGATI VE negati ve normal Not Available [address], [address], 06/07/2023 13:45:26 06/03/2006/07/2023 URINA LYSIS ,COMP LETE( REFL) occult blood NEGATI VE negati ve normal Not Available [facility] [address], [address], 06/07/2023 13:45:26 06/03/2006/07/2023 URINA LYSIS ,COMP LETE( REFL) protein NEGATI VE negati ve normal Not Available [facility] [address], [address], 06/07/2023 13:45:26 06/03/2006/07/2023 URINA LYSIS ,COMP LETE( REFL) nitrite NEGATI VE negati ve normal Not Available [address], [address], 06/07/2023 13:45:26 06/03/2006/07/2023 URINA LYSIS ,COMP LETE( REFL) leukocyte esterase NEGATI VE negati ve normal Not Available [address], [address], 06/07/2023 13:45:26 06/03/2006/07/2023 URINA LYSIS ,COMP LETE( REFL) WBC NONE SEEN /hpf < or = 5 normal Not Available [address], [address], 06/07/2023 13:45:26 06/03/2006/07/2023 URINA LYSIS ,COMP LETE( REFL) RBC NONE SEEN /hpf < or = 2 normal Not Available [address], [address], 06/07/2023 13:45:26 06/03/2006/07/2023 URINA LYSIS ,COMP LETE( REFL) squamous epithelial cells NONE SEEN /hpf < or = 5 normal Not Available [address], [address], 06/07/2023 13:45:26 06/03/2006/07/2023 URINA LYSIS ,COMP LETE( REFL) bacteria NONE SEEN /hpf none seen normal Not Available [address], [address], 06/07/2023 13:45:26 06/03/20 23 06/07/2023 URINA LYSIS ,COMP LETE( REFL) hyaline cast NONE SEEN /lpf none seen normal Not Available [address], [address], 06/07/2023 13:45:26 06/03/2006/07/2023 PSA, TOTAL PSA, total 0.19 NG/mL < or = 4.00 normal The total PSA value from this assay syste m is stand ardiz ed again st the WHO stand robert. The test resul t will be appro ximat aaron 20% lower when bradford red to the equim olar- stand ardiz ed total PSA (Gould man Coult er). Bradford rison of seria l PSA resul ts shoul d be inter prete d with this fact in mind. This test was perfo rmed using the Sieme ns chemi lumin escen t metho d. Value s obtai flavio from diffe rent assay metho ds canno t be used inter barrera eably . PSA level s, regar dless of value , shoul d not be inter prete d as absol [place] evide nce of the prese nce or absen ce of disea se. Not Available [facility] [address] [place], [address], 06/07/2023 13:45:27 06/03/2006/07/2023 TESTO STERO NE, FREE (DIAL YSIS) AND TOTAL ,MS testosterone , total, MS 275 NG/dL 250-11 00 Men with clini rey signi fican t hypog onada l sympt oms and testo stero ne value s repea tedly in the range of the 200-3 00 ng/dL or less, may benef it from testo stero ne treat ment after adequ ate risk and benef its couns eling . For addit ional infor lisa bennett e refer to https ://ed ucati on.qu estdi Engagios. com/f aq/FA G011 (This link is being provi ded for infor alonzo nal/e ducat ional purpo ses only. ) (Note ) This test was devel oped and its shreya tical perfo rmanc e jaime cteri stics have been deter mined by [employer]. It has not been clear ed or appro nhi by the FDA. This assay has been valid ated pursu ant to the CLIA regul ation s and is used for clini laura purpo ses. Not Available [facility] [address], [place], [address], 06/07/2023 13:45:28 06/03/20 23 06/07/2023 TESTO STERO NE, FREE (DIAL YSIS) AND TOTAL ,MS testosterone , free 32.8 pg/mL 35.0-1 55.0 low (Note ) This test was sonya martínez and its shreya tical perfo rmanc e jaime cteri stics have been deter mined by [employer]. It has not been clear ed or appro nhi by the FDA. This assay has been valid ated pursu ant to the CLIA regul ation s and is used for clini laura purpo ses. [facility] med fusio n [address] [facility] [address] [facility] [address] [phone] Thad timmons MD Not Available [facility] [address] [address], [place], [address], 06/07/2023 13:45:28 10/09/19 22 10/05/2021 XR, adityaul michael No observ ation record ed. [id number] [facility] [address] [place] [address] [address], [place], [address], 10/05/2022 01:07:20 Result Notes None recorded. Problems Name Problem SNOMED Code Status Onset Date Resolution Date Notes Provider Name and Address Organization Details Recorded Time Edema of lower extremity 816927821 Active Not Available [facility] 3 00:57:38 Diverticul itis of colon 643252505 Active Not Available [facility] 3 00:57:38 Benign essential hypertensi on 1351656 Active Not Available [facility] 3 00:57:38 Acute sinusitis 74512214 Active Not Available [facility] 3 00:57:38 Pain in throat 933134892 Active Not Available [facility] 3 00:57:38 Body mass index 30+ - obesity 777012790 Active Not Available [facility] 3 00:57:38 Blood chemistry outside reference range 905146864 Active Not Available [facility] 3 00:57:39 Asthma 421398709 Active Not Available [facility] 3 00:57:39 Type 2 diabetes mellitus without complicati on 128270328 Active Not Available [facility] 3 00:57:39 Body mass index 40+ - severely obese 028993524 Active Not Available [facility] 3 00:57:39 Atrial fibrillati on 41669909 Active Not Available [facility] 3 00:57:40 Cough 17138217 Active Not Available [facility] 3 00:57:40 Posterior rhinorrhea 83660312 Active Not Available [facility] 3 00:57:40 Obstructiv e sleep apnea syndrome 39980156 Active Not Available [facility] 3 00:57:40 Skin lesion 71298025 Active Not Available [facility] 3 00:57:40 Heel pain 4620955 Active 2018 Not Available [facility] 3 00:57:39 Hyperlipid emia 24148333 Active 2021 Not Available [facility] 3 00:57:40 Long-term drug therapy Active 2021 Not Available [facility] 3 00:57:39 Adult health examinatio n Active 2021 Not Available [facility] 3 00:57:39 Erectile dysfunctio n due to type 2 diabetes mellitus 422964181 Active 2021 Not Available [facility] 3 00:57:39 Uncontroll ed type 2 diabetes mellitus 250410787 Active 2021 Not Available [facility] 3 00:57:39 Screening for malignant neoplasm of prostate Active 2021 Not Available [facility] 3 00:57:39 Male hypogonadi sm 99410953 Active 2021 Not Available [facility] 3 00:57:40 Strain of thoracic region 00011051 Active 2021 Not Available [facility] 3 00:57:40 Localized, primary osteoarthr itis of the shoulder region 281437937 Active 2021 Not Available [facility] 3 00:57:39 Pain of right shoulder joint 0722133201521 9100 Active 2021 Not Available [facility] 3 00:57:38 Herpes zoster 1727170 Active 2022 DIOMEDES Hall[address] [facility], [address], [place], [address] , [facility] [employer] 3 11:34:15 Problem Notes None recorded. Procedures Surgical History Date Name Laterality Status Provider Name and Address Organization Details Recorded Time 07/08/2016 Vasectomy completed Not Available [facility] 10/05/2022 00:50:48 Imaging Results None recorded. Procedure Notes None recorded. Medical Equipment None Reported. Allergies No known drug allergies Medications Name Sig Start Date Stop Date Status Note LastModified by Organization Details LastModified Time Augmentin 875 mg-125 mg tablet Take 1 tablet every 12 hours by oral route. 03/14 completed Not Available Not Available Not Available prednison e 10 mg tablet 03/29 completed Not Available Not Available Not Available atorvasta tin 20 mg tablet TAKE 1 TABLET BY MOUTH EVERY DAY AT NIGHT active Not Available Not Available No t Available sildenafi l 50 mg tablet Take 1 Tablet (50 mg) by mouth 1 time daily as needed. 2022 active Not Available Not Available Not Avai lable azithromy anjana 250 mg tablet 03/28 completed Not Available Not Available Not Available valacyclo vir 1 gram tablet Take 1 tablet every 8 hours by oral route for 7 days. active Not Available Not Available No t Available diltiazem CD 240 mg capsule,e xtended release 24 hr TAKE 1 CAPSULE BY MOUTH EVERY DAY active Not Available Not Available No t Available lisinopri l 20 mg tablet Take 1 Tablet (20 mg) by mouth daily. active Not Available Not Available No t Available bupivacai ne HCl 0.5 % (5 mg/mL) injection solution Take 8 mg by injectio n route. active Not Available Not Available No t Available prednison e 20 mg tablet take 4 tabs po daily x 2 days, thentake 3 tabs po daily x 2 days, thentake 2 tabs po daily x 2 days, thentake 1 tab po daily x 2 days, thentake 1/2 tab po daily x 2 days. 06/09 completed Not Available Not Available Not Available promethaz ine 6.25 mg-codein e 10 mg/5 mL syrup Take 5 mL every 6 hours by oral route as needed. active Not Available Not Available No t Available metronida zole 500 mg tablet active Not Available Not Available No t Available ciproflox acin 500 mg tablet active Not Available Not Available No t Available tramadol 50 mg tablet 11/03 completed Not Available Not Available Not Available glimepiri de 1 mg tablet TAKE 1 TABLET BY MOUTH TWICE A DAY WITH MEALS 2022 active Not Available Not Available Not Avai lable amoxicill in 875 mg tablet Take 1 tablet every 12 hours by oral route. active Not Available Not Available No t Available magnesium oxide 400 mg (241.3 mg magnesium ) tablet takes 2 tabs daily 06/16 completed Not Available Not Available Not Available diltiazem ER 120 mg capsule,2 4 hr,extend ed release active Not Available Not Available Not Available OneTouch Ultra Test strips 11/01 completed Not Available Not Available Not Available Kenalog 10 mg/mL suspensio n for injection In office injectio n administ ered by the provider 05/19 completed [facility]: [phone] 4-20 Not Available Not Available Not Available Cartia XT 120 mg capsule,e xtended release Take 1 capsule every day by oral route for 30 days. 11/03 completed Not Available Not Available Not Available lisinopri l 10 mg tablet Take 1 tablet every day by oral route. 2014 active Not Available Not Available Not Avai lable prednison e 50 mg tablet Take 1 tablet every day by oral route for 5 days. active Not Available Not Available No t Available hydrochlo rothiazid e 12.5 mg capsule TAKE 1 CAPSULE BY MOUTH EVERY DAY 10/05 completed Not Available Not Available Not Available mometason e 50 mcg/actua tion nasal spray 2 sprays each nostril daily. 11/28 completed Not Available Not Available Not Available monteluka st 10 mg tablet Take 1 tablet by mouth once daily active Not Available Not Available No t Available digoxin 125 mcg (0.125 mg) tablet 11/03 completed Not Available Not Available Not Available furosemid e 20 mg tablet TAKE ONE TABLET BY MOUTH ONE TIME DAILY. *STOP HCTZ* 06/09 completed Not Available Not Available Not Available Cheratuss in AC 10 mg-100 mg/5 mL oral liquid Take 10 mL every 6 hours by oral route as needed. 10/14 completed Not Available Not Available Not Available cefuroxim e axetil 500 mg tablet Take 1 tablet every 12 hours by oral route. active Not Available Not Available No t Available methylpre dnisolone 4 mg tablets in a dose pack 06/17 completed Not Available Not Available Not Available albuterol sulfate HFA 90 mcg/actua tion aerosol inhaler INHALE 2 PUFFS BY MOUTH EVERY 4-6 HOURS NEEDED FOR WHEEZING . 2022 active Not Available Not Available Not Avai lable cefdinir 300 mg capsule TAKE 1 CAPSULE BY MOUTH EVERY 12 HOURS active Not Available Not Available No t Available fluticaso ne propionat e 50 mcg/actua tion nasal spray,garrett pension active Not Available Not Available Not Available metformin ER 500 mg tablet,ex tended release 24 hr Take 2 Tablets (1,000 mg) by mouth daily WITH DINNER active Not Available Not Available No t Available magnesium 200 mg tablet Take 1 tablet twice a day by oral route. 11/03 completed Not Available Not Available Not Available Fish Oil takes daily 2015 active Not Available Not Available Not Avai lable Singulair 2014 active Not Available Not Available Not Avai lable lisinopri l 2014 active Not Available Not Available Not Avai lable OneTouch Ultra2 Meter kit 11/01 completed Not Available Not Available Not Available hydrochlo rothiazid e 12.5 mg tablet Take 1 tablet every day by oral route in the morning. active Not Available Not Available No t Available Probiotic takes daily 2015 active Not Available Not Available Not Avai lable Bydureon 2 mg subcutane ous extended release suspensio n INJECT 2 MG ONCE BY SUBCUTAN EOUS ROUTE EVERY 7 DAYS active pt stopped Not Available Not Available Not Available Eliquis 5 mg tablet TAKE 1 TABLET BY MOUTH TWICE A DAY active Not Available Not Available No t Available Belviq 10 mg tablet Take 1 tablet twice a day by oral route. active Not Available Not Available No t Available Farxiga 5 mg tablet Take 1 tablet every day by oral route. 09/28 completed Not Available Not Available Not Available Bydureon 2 mg/0.65 mL subcutane ous pen injector Inject 2 mg every week by subcutan eous route as directed . active Not Available Not Available No t Available Jardiance 10 mg tablet TAKE 1 TABLET BY MOUTH EVERY DAY active Not Available Not Available No t Available Emverm 100 mg chewable tablet Chew 1 tablet twice a day by oral route for 3 days. 04/07 completed Not Available Not Available Not Available OneTouch Ultra Blue Test Strip Take 1 strip twice a day by miscell. route as directed . active Not Available Not Available No t Available OneTouch Ultra2 Meter 11/01 completed Not Available Not Available Not Available OneTouch Delica Plus Lancet 33 gauge 11/01 completed Not Available Not Available Not Available Ozempic 0.25 mg or 0.5 mg (2 mg/3 mL) subcutane ous pen injector active Not Available Not Available Not Available Vitals Date Recorded Body mass index (BMI) Body height Oxygen saturation Heart rate Respiratory rate Body temperature Body weight Systolic And Diastolic Systolic And Diastolic Provider Name and Address Organization Details Last Updated DateTime 2 40 kg/m2 175.26 cm 96 % 87 /min 16 /min 97.8 [degF] 633585. 25 g 122/80 mm[Hg] 110/80 mm[Hg] Not Available [facility] 3 00:51:20 Date Recorded Body mass index (BMI) Body height Pain severity - 0-10 verbal numeric rating [Score] - Reported Body weight Provider Name and Address Organization Details Last Updated DateTime 11/16/2021 39.9 kg/m2 175.26 cm 7 837185.94 g Not Available [facility] 10/05/2022 00:51:27 Date Recorded Systolic And Diastolic Provider Name and Address Organization Details Last Updated DateTime 11/18/2022 130/80 mm[Hg] DIOMEDES Hallman [address] [facility], [facility] [address], [place], [address], [facility] [employer] 11/18/2022 14:35:27 Date Recorded Body height Body mass index (BMI) Body weight Respiratory rate Body temperature Oxygen saturation Heart rate Systolic And Diastolic Provider Name and Address Organization Details Last Updated DateTime 3 175.26 cm 39.1 kg/m2 837911. 98 g 16 /min 97.8 [degF] 97 % 86 /min 130/80 mm[Hg] DAVID Angeles [facility] [employer] [facility] 3 14:04:26 Date Recorded Body height Oxygen saturation Heart rate Respiratory rate Body temperature Systolic And Diastolic Provider Name and Address Organization Details Last Updated DateTime 2 175.26 cm 97 % 80 /min 16 /min 97.3 [degF] 128/82 mm[Hg] Not Available [facility] 3 00:51:21 Date Recorded Systolic And Diastolic Provider Name and Address Organization Details Last Updated DateTime 06/09/2023 130/82 mm[Hg] DIOMEDES Hallman [address] [place] [address] [facility] [address], [place], [address], [facility] [employer] 06/09/2023 10:38:39 Date Recorded Body height Body mass index (BMI) Body weight Body temperature Heart rate Oxygen saturation Systolic And Diastolic Provider Name and Address Organization Details Last Updated DateTime 3 175.26 cm 37.8 kg/m2 431325. 65 g 97.6 [degF] 81 /min 98 % 136/82 mm[Hg] Laila Mckeon RN [facility] [employer] 3 10:12:35 Social History Question Answer Notes LastModified by Organizat ion Details LastModified Time Tobacco Smoking Status Former Smoker Not Available [facility] 10/05/2022 00:46:10 What Is Your Level Of Caffeine Consumption? Occasional [id number] Information not available 10/05/2022 How Much Tobacco Do You Chew? None MIGRATION.[id number] Information not available 10/05/2022 In The 14 Days Before Symptom Onset, Have You Had Close Contact With A Laboratory-confir med COVID-19 While That Case Was Ill? No MIGRATION.[id number] Information not available 10/05/2022 In The 14 Days Before Symptom Onset, Have You Had Close Contact With A Person Who Is Under Investigation For COVID-19 While That Person Was Ill? No MIGRATION.[id number] Information not available 10/05/2022 What Type Of Diet Are You Following? REGULAR [id number] Information not available 10/05/2022 Which Illicit Or Recreational Drugs Have You Used? None MIGRATION.[id number] Information not available 10/05/2022 Have There Been Any Changes To Your Family Or Social Situation? No MIGRATION.[id number] 2436 Information not available 10/05/2022 Do You Use Insect Repellent Routinely? No MIGRATION.[id number] Information not available 10/05/2022 What Was The Date Of Your Most Recent Tobacco Screening? 10/07/2020 MIGRATION.[id number] Information not available 10/05/2022 What Is Your Relationship Status? MIGRATION.[id number] 9149 Information not available 10/05/2022 Do You Use Your Seat Belt Or Car Seat Routinely? Yes MIGRATION.[id number] 2358 Information not available 10/05/2022 Do You Have Smoke And Carbon Monoxide Detectors In Your Home? Yes MIGRATION.[id number] 8258 Information not available 10/05/2022 How Much Tobacco Do You Smoke? No MIGRATION.[id number] 9367 Information not available 10/05/2022 Do You Use Sunscreen Routinely? Yes MIGRATION.[id number] 7635 Information not available 10/05/2022 Have You Recently Traveled Abroad? No MIGRATION.[id number] 5385 Information not available 10/05/2022 Do You Have Any Dietary Restrictions? No MIGRATION.025543 5737 Information not available 10/05/2022 Sex: Unknown Functional Status Question Answer Note LastModified by Organizat ion Details LastModified Time Do you use any illicit or recreational drugs? No MIGRATION.[id number] 1755 Information not available 10/05/2022 Do you or have you ever used any other forms of tobacco or nicotine? No MIGRATION.[id number] 9492 Information not available 10/05/2022 What is your level of alcohol consumption? None MIGRATION.[id number] 4865 Information not available 10/05/2022 Do you or have you ever used smokeless tobacco? 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 Never used electronic cigarettes MIGRATION.865766 4394 Information not available 10/05/2022 What is your exercise level? Occasional MIGRATION.851925 5993 Information not available 10/05/2022 Mental Status None recorded. Family History Relationship Description Onset Age of this Age Resolved Age Notes LastModified by Organization Details LastModified Time Mother Malignant neoplasm of breast 44 [id number].[id number] Not available 10/05/2022 00:50:50 Father Hypertensive disorder MIGRATION.[id number] Not available 10/05/2022 00:50:50 Father Diabetes mellitus MIGRATION.912 [id number] Not available 10/05/2022 00:50:50 Father Heart disease MIGRATION.[id number] Not available 10/05/2022 00:50:50 Father Family history of stroke MIGRATION.[id number] Not available 10/05/2022 00:50:50 Medical History Condition Response NERVE DISEASE N BLINDNESS N RHEUMATIC FEVER N KIDNEY STONES N BLADDER PROBLEMS N OTHER # 1 N POLIO N LUNG DISEASE/DISORDER N COPD N RADIATION / CHEMOTHERAPY N Other # 2 N BLOOD DISEASES N SURGERY N EAR OR HEARING PROBLEMS N MUMPS N BOWEL PROBLEMS Y DEPRESSION (INCLUDING POST ) Y STROKE/TIA N ULCERS N BENIGN PROSTATIC HYPERPLASIA N MEASLES N MYOCARDIAL INFARCTION N OBESITY Y GERD/NAUSEA N ANEURYSM N URINARY/BLADDER/KIDNEY PROBLEMS Y INPATIENT PSYCH CARE N CORONARY ARTERY DISEASE (CAD) N ADDICTION CONCERNS N Impotence N ENDOMETRIOSIS N USE OF BLOOD THINNERS N SKIN PROBLEMS N GASTROINTESTINAL DISORDER N PERIPHERAL VASCULAR DISEASE N MUSCLE,JOINT OR BONE PROBLEMS N GASTROINTESTINAL BLEEDING N BLOOD CLOTS N ASTHMA Y CATARACTS N ERECTILE DYSFUNCTION N VARICOSITIES N GI PROBLEMS N Low Testosterone N INFERTILITY N AIDS/HIV N LIVER DISEASE N MALE HYPOGONADISM N HYPERTENSION Y Deficiency N ANXIETY DISORDER Y BLOOD TRANSFUSION N ANEMIA/BLOOD DISORDER N CHRONIC EAR INFECTIONS N BRONCHITIS Y TUBERCULOSIS N GLAUCOMA N DIVERTICULITIS Y SLEEP APNEA N CHICKENPOX N INFECTIOUS DISEASE N PROSTATE N HEART ARRHYTHMIA N INSOMNIA N HIGH CHOLESTEROL / HYPERLIPIDEMIA Y EYE PROBLEMS Y HYPERTHYROIDISM N NEUROLOGICAL PROBLEMS N EDEMA N CHRONIC PAIN SYNDROME N HYPOTHYROIDISM N CONSTIPATION N CAROTID BLOCKAGE N BACK / NECK PROBLEMS N HAVE YOU BEEN HOSPITALIZED OR SEEN IN [facility] IN THE PAST YEAR ? N ATHEROSCLEROSIS N BREAST PROBLEMS N DIALYSIS N ECZEMA N OSTEOPOROSIS N ARTHRITIS N NO SIGNIFICANT PAST MEDICAL HISTORY N APPENDICITIS N DIABETES, TYPE Y BAD TEETH N ENT N HEARTBURN / REFLUX N AUTISM SPECTRUM DISORDER (ASD) N HEPATITIS / LIVER DISEASE N PULMONARY DISEASE N GOUT N SLEEP DISORDER Y ALZHEIMER'S DISEASE N Brain Problems N DEMENTIA N HERPES Y SEIZURES/EPILEPSY N HEADACHES/MIGRAINES Y VASCULAR DISEASE N PACEMAKER N Blood Disorder N DIZZINESS N HEART DISEASE/HEART PROBLEMS N KIDNEY DISEASE N MULTIPLE SCLEROSIS N CANCER: SPECIFY N CARDIAC ARRHYTHMIA Y ANESTHESIA COMPLICATIONS N ATRIAL FIBRILLATION N Gall Stones N PULMONARY EMBOLISM N AUTOIMMUNE DISEASE N Immunizations Vaccine Type Date Status Note Provider Nam e and Address Organization Details Recorded Time Influenza, split virus, quadrivalent, preservative 0 completed Not Available [facility] 10/05/2022 01:06:28 influenza, unspecified formulation 5 completed Not Available [facility] 10/05/2022 01:06:28 COVID-19, mRNA, LNP-S, PF, 30 mcg/0.3 mL dose 2 completed Not Available [facility] 10/05/2022 01:06:28 Influenza, split virus, quadrivalent, preservative 7 completed Not Available [facility] 10/05/2022 01:06:28 Past Encounters Encounter ID Performer Location Encounter Start Date Encounter Closed Date Diagnosis/Indication Diagnosis SNOMED-CT Code Diagnosis ICD10 Code Diagnosis IMO Codes Diagnosis Note [id number] DIOMEDES Hallman [facility] [place] [address] [address], [address] [place] [address] 10/07/2020 00:00:00 10/29/2020 20:58:06 [id number] DIOMEDES Hallman [facility] [place] [address] [facility], [address] [place] [address] 04/07/2021 00:00:00 05/06/2021 13:56:54 [id number] DIOMEDES Hallman [facility] [place] [address] [facility] [address], [address] [place] [address] 4 06/17/2021 00:00:00 07/06/2021 16:55:00 [id number] DIOMEDES Hallman [facility] [place] [address] [facility] [address], [address] [place] [address] 10/05/2021 00:00:00 10/05/2021 14:26:12 [id number] Prashanth Carpenter MD [facility] [place] [address] [place] [address] 11/16/2021 00:00:00 11/16/2021 15:32:13 [id number] DIOMEDES Hallman [facility] [place] [address] [place] [address] 05/20/2022 00:00:00 06/05/2022 00:45:00 [id number] DIOMEDES Hallman [facility] [place] [address] [place] [address] 11/18/2022 13:58:12 11/18/2022 14:41:31 Benign essential hypertension 8882158 I10 stable on medication lisinopril and diltiazem Hyperlipidemia 13816165 E78.5 controlled well on atorvastat in 20mg daily. Obstructiv e sleep apnea syndrome 39927296 G47.33 stable on cpap Type 2 tomasz betes mellitus without complication 678526167 E11.9 6.2% on jardiance and metformin ER and glimeperid e Asthma 005254844 J45.90 9 stable on albuterol HFA and singulair 10mg daily Edema of l ower extremity 332478611 R60.0 managed with compressio n stockings Long-term drug therapy 097467038 Z79.899 TFTs, CBC, CMP and Ua ordered for apr. Screening for malignant neoplasm of prostate 442809251 Z12.5 PSA due in apr Male hypogonadism 325868 06 E29.1 screening testostero ne due in apr labs. Body mass index 30+ - obesity 252860094 Z68.39 Atrial fibrillation 4943 6004 I48.91 stable on diltiazem and anticoagul ated with eliquis [id number] DIOMEDES Hallman [facility] [place] [address] [place] [address] 06/09/2023 10:00:48 06/09/2023 10:41:13 Type 2 diabetes mellitus without complication 703260458 E11.9 5.9% on jardiance and metformin ER and glimepride and now ozempic. Benign ess ential hypertension 4267205 I10 stable on medication lisinopril and diltiazem Atrial fibrillation 4943 6004 I48.91 stable on diltiazem and anticoagul ated with eliquis Hyperlipidemia 81203583 E78.5 controlled well on atorvastat in 20mg daily. Obstructiv e sleep apnea syndrome 03922519 G47.33 stable on cpap Asthma 183037218 J45.90 9 stable on albuterol HFA and singulair 10mg daily Male hypogonadism 260041 06 E29.1 low testostero ne on recent labs. following each lab panel Edema of l ower extremity 005096188 R60.0 managed with compressio n stockings Long-term drug therapy 266991051 Z79.899 TFTs, CBC, CMP next labs due in november 2023 Body mass index 30+ - obesity 975155487 Z68.39 Adult [facility] th examination 607484376 Z00.01 well exam completed Health Concerns Section Related Observation LastModified by Organization Detai ls LastModified Time None Recorded Concern Status LastModified by Organization Details LastModified Time None Recorded Advance Directives Directive None Recorded Payers Insurance Date Sequence Insurance Name Policy Number Policy Rodriguez Covered Member ID Rodriguez Member ID Guarantor Name 07/07/2023 1 [place] [id number] Agnieszka Lund [id number] Luan Lund 2023 1 [place] [id number] Luan Lund [id number] Luan Lund Notes Date Note Type Note Provider Name and Address Organization Details Recorded Time 11/19/19 23 text/ht ml HypertensionReported by PatientHPIFor duration, patient reportshas noted for years. For onset/timing, patient reportsbetter. For alleviating factors, patient reportsmedication. For associated symptoms, patient reportsno shortness of breath,no fatigue,no palpitations,no decline in exercise capacity, andno snoring. HyperlipidemiaReported by PatientHPIFor duration, patient reportschronic. For compliance, patient reportsnoncompliant with dietbut reportscompliant,compliant with diet, andexercises. For risk factors, patient reportsdiabetesandhypertension. For control, patient reportsusually well controlled. For current therapy, patient reportscurrently taking: (atorvastatin). For complications, patient reportsno coronary artery disease,no peripheral artery disease, andno cardiovascular disease. Obstructive Sleep Apnea F/UReported by PatientHPIFor quality, patient reportsno loud snoring,no gasping for air,no witnessed apnea,no hyponasal speech, andno frequent breathing through the mouth. For onset/timing, patient reportschronic. For duration, patient reportscontinuous. For severity, patient reportsdoes not limit daily activities,no frequent sore throats resulting in excess missed days from school / work per year,no difficulty getting going in the morning, andno awakening in the middle of the night with sore throat. For location, patient reportsno enlarged tonsils,no nasal passage blockage,no throat pain,no feeling of tightness in throat,no dryness of mouth, andno chest congestion. For context, patient reportsno lack of adequate sleep,no shift work,not currently taking medication to help sleep,no recent weight gain,no recent upper respiratory infection,no recent sick contacts,not worse with environmental exposure,not worse with seasonal allergen exposure,no hypertension, andnormal sleep hours. For aggravating factors, patient reportsnot worse during an upper respiratory infection (a cold)andnot worse when allergies are active. For associated symptoms, patient reportsno morning headache,no awakening at night short of breath,no sweating heavily at night,no excessive sleepiness during the day,no suddenly falling asleep during the day,no napping,no impaired work performace, andno nasal congestion. DiabetesReported by PatientHPIFor compliance, patient reportshas not had dietitian visit in last year,does not wear a medic alert bracelet or necklace, anddoes not keep rapid-acting carbohydrate in carbut reportscompliant with medications,compliant with follow-up visits,compliant with diet,compliant with home glucose monitoring,had eye doctor visit in last year,had dietitian visit in last year,wears a medic alert bracelet or necklace, andrapid-acting carbohydrate kept in car. For context, patient reportsnot taking aspirin dailybut reportsnormal range of home blood sugars (in the low 100s),seeing eye doctor regularly, andchecking feet regularly. For duration, patient reportschronic. For control, patient reportstreated with diet and oral medications. For self care, patient reportsmonitoring glucose weekly. For associated symptoms, patient reportsno weight gain,no weight loss,no dizziness,no sweats,no headaches,no confusion,no increased thirst,no increased appetite,no increased urination,no blurred vision,no numbness of feet,no calluses on feet,no coronary artery disease,no kidney disease,no peripheral vascular disease,no diabetic retinopathy, andno diabetic neuropathy. DIOMEDES Hallman [address] [facility], [facility] [address], [place], [address], [facility] [employer] 12/02/2022 20:23:31 06/09/20 23 text/ht ml HypertensionReported by PatientHPIFor duration, patient reportshas noted for years. For onset/timing, patient reportsbetter. For alleviating factors, patient reportsmedication. For associated symptoms, patient reportsno shortness of breath,no fatigue,no palpitations,no decline in exercise capacity, andno snoring. HyperlipidemiaReported by PatientHPIFor duration, patient reportschronic. For compliance, patient reportsnoncompliant with dietbut reportscompliant,compliant with diet, andexercises. For risk factors, patient reportsdiabetesandhypertension. For control, patient reportsusually well controlled. For current therapy, patient reportscurrently taking: (atorvastatin). For complications, patient reportsno coronary artery disease,no peripheral artery disease, andno cardiovascular disease. Obstructive Sleep Apnea F/UReported by PatientHPIFor quality, patient reportsno loud snoring,no gasping for air,no witnessed apnea,no hyponasal speech, andno frequent breathing through the mouth. For onset/timing, patient reportschronic. For duration, patient reportscontinuous. For severity, patient reportsdoes not limit daily activities,no frequent sore throats resulting in excess missed days from school / work per year,no difficulty getting going in the morning, andno awakening in the middle of the night with sore throat. For location, patient reportsno enlarged tonsils,no nasal passage blockage,no throat pain,no feeling of tightness in throat,no dryness of mouth, andno chest congestion. For context, patient reportsno lack of adequate sleep,no shift work,not currently taking medication to help sleep,no recent weight gain,no recent upper respiratory infection,no recent sick contacts,not worse with environmental exposure,not worse with seasonal allergen exposure,no hypertension, andnormal sleep hours. For aggravating factors, patient reportsnot worse during an upper respiratory infection (a cold)andnot worse when allergies are active. For associated symptoms, patient reportsno morning headache,no awakening at night short of breath,no sweating heavily at night,no excessive sleepiness during the day,no suddenly falling asleep during the day,no napping,no impaired work performace, andno nasal congestion. DiabetesReported by PatientHPIFor compliance, patient reportshas not had dietitian visit in last year,does not wear a medic alert bracelet or necklace, anddoes not keep rapid-acting carbohydrate in carbut reportscompliant with medications,compliant with follow-up visits,compliant with diet,compliant with home glucose monitoring,had eye doctor visit in last year,had dietitian visit in last year,wears a medic alert bracelet or necklace, andrapid-acting carbohydrate kept in car. For context, patient reportsnot taking aspirin dailybut reportsnormal range of home blood sugars (in the low 100s),seeing eye doctor regularly, andchecking feet regularly. For duration, patient reportschronic. For control, patient reportstreated with diet and oral medications. For self care, patient reportsmonitoring glucose weekly. For associated symptoms, patient reportsno weight gain,no weight loss,no dizziness,no sweats,no headaches,no confusion,no increased thirst,no increased appetite,no increased urination,no blurred vision,no numbness of feet,no calluses on feet,no coronary artery disease,no kidney disease,no peripheral vascular disease,no diabetic retinopathy, andno diabetic neuropathy. wellness DIOMEDES Hallman [address] [facility], [facility] [address], [place], [address], [facility] [employer] 07/06/2023 23:03:31
--- OUTSIDE RECORDS SUMMARY | 2025-07-22 00:22 | XMS_ITS | Encounter Summary ---
Author Organization [facility] Address [address] [place] [address] Care Team Providers Care Bed Rubber Name Role Phone Unavailable Primary Care Provider Unavailabl e Encounter Details Date Type Department Care Team (Late st Contact Info) Description 09/19/2019 Lab Requisition [facility] [address] [facility] [place] [address] Anitra Hdez DO [address] [facility] [address] [place] [address] Social History Tobacco Use Types Packs/Day Years Used Date Smoking Tobacco: Never Assessed Sex and Gender Information Value Date Recorded Sex Assigned at Not on file Legal Sex Male 2:40 PM CDT Gender Identity Not on file Sexual Orientation Not on file documented as of this encounter Plan of Treatment Not on file documented as of this encounter Procedures Procedure Name Priority Date/Time Associated Diagnosis Comments DERMATOPATHOLOGY Routine 09/18/2019 12:0 0 AM AGENCY DEVELOPMENT MANAGER documented in this encounter Results * DERMATOPATHOLOGY (09/18/2019 12:00 AM AGENCY DEVELOPMENT MANAGER) Case Report Dermatopathology Report Case: [id number] Authorizing Provider: Anitra Hdez DO Collected: 09/18/2019 12:00 AM Ordering Location: [facility] Received: 09/19/2019 11:49 AM Pathologist: Clara Heath MD Specimens: A) - Skin, right inner thigh B) - Skin, upper back 0 11:13 AM AGENCY DEVELOPMENT MANAGER DERMATOPATHOLOGY LABORATORY Final Diagnosis Specimen A. SKIN, right inner thigh: DERMATOFIBROMA (D23.9) Specimen B. SKIN, upper back: DERMATOFIBROMA (D23.9) 0 11:13 AM [facility] DERMATOPATHOLOGY [facility]ORATORY at [address] AGENCY DEVELOPMENT MANAGER Clinical History A-B: DF R/O atypia. 0 11:13 AM [facility] DERMATOPATHOLOGY [facility]ORAT[facility] Gross Description Specimen A: Received is one formalin filled container labeled with the patient's name and designated right inner thigh. The specimen consists of a shave measuring 7x9n2gv. Jar 0. Specimen B: Received is one formalin filled container labeled with the patient's name and designated upper back. The specimen consists of a shave measuring 25u5w6ot. Jar 0. 0 11:13 AM [facility] DERMATOPATHOLOGY [facility]ORATORY Microscopic Description Specimen A. SKIN, right inner thigh: There is epidermal hyperplasia. Within the dermis, there are fibrohistiocytic cells in haphazard array among coarse collagen bundles. Specimen B. SKIN, upper back: There is epidermal hyperplasia. Within the dermis, there are fibrohistiocytic cells in haphazard array among coarse collagen bundles. 0 11:13 AM [facility] DERMATOPATHOLOGY [facility]ORATORY Disclaimer An external and internal positive and negative controls are appropriate for the histochemical, immunohistochemical and immunofluorescence stain(s) in this case (if any), except where stated explicitly. The performance characteristics of the stain(s) cited in this report were developed and its performance characteristic determined by the Dermatopathology Laboratory at [facility], directed by Dr. Simone Davis. These tests need not be, and therefore are not, approved by the [place] Food and Drug Administration. The tests are used for clinical purposes. Billing Codes Specimen Charges Stain Charges 82081 87474 1 1 0 11:13 AM [facility] DERMATOPATHOLOG[facility] Embedded Images 0 11:13 AM [facility] DERMAT[facility] Pathology/Cytology TISSUE SPECIMEN FROM SKIN / Unknown 09/18/2019 09/19/2019 11:49 AM AGENCY DEVELOPMENT MANAGER Miscellaneous samples (specimen) TISSUE SPECIMEN FROM SKIN / Unknown 09/18/2019 09/19/2019 11:49 AM AGENCY DEVELOPMENT MANAGER Anitra Hdez DO LAB - PATHOLOGY/CYTOLOGY ORDERABLES Final Result DERMATOPATHOLOGY LABORATORY [facility] - Department of Dermatology [address]th [place] [address], [facility] [phone] documented in this encounter Visit Diagnoses Not on filedocumented in this encounter
--- OUTSIDE RECORDS SUMMARY | 2025-07-22 00:22 | XMS_ITS | Continuity of Care Document ---
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 Not available 04/24/2025 14:06:46 Plan of Treatment Reminders Order Date Submit Date Provider Last Modified By Organization Details Last Modified Time Details Appointments ANY 15 2025 01:45P M DIOMEDES Hallman Not available Not available Not available Lab HbA1c (hemoglob in A1c), blood 2024 025 [email or web address] [facility], [address] [place], [address], 07/17/2025 10:35:52 microalbu min/creat inine, mass ratio, urine 2024 025 KRISTEN [facility], [address], [place], [address], 04/24/2025 14:02:43 microalbu min, urine 2024 025 KRISTEN [facility], [address], [place], [address], 04/24/2025 14:02:44 noninvasi ve colorecta l cancer DNA + occult blood screening , QL, stool 2024 025 [facility], [address], [address], [place], [address], 07/09/2025 11:07:00 CMP, serum or plasma 2024 025 [email or web address] [facility], [address], [place], [address], 07/17/2025 10:35:51 CBC w/ auto diff 2024 025 [email or web address] [facility], [address], [place], [address], 07/17/2025 10:35:51 lipid panel, serum 2024 025 [email or web address] [facility], [address], [place], [address], 07/17/2025 10:35:52 Referral None recorded. Procedures None recorded. Surgeries None recorded. Imaging None recorded. Medication Orders None recorded. Patient TargetsNo targets recorded. Patient Instructions Encounter Date Encounter Id Patient Instructions Last Modified By Organization Details Last Modified Time 04/24/2025 [id number] A healthy lifestyle: care instructions Not available 04/24/2025 14:02:31 Reason for Referral None Reported. Results Created Date Observation Date Name Description Value Unit Range Abnormal Flag Note LastModifiedBy Organization Detail LastModifiedTime 07/04/2007/04/2025 COLOG UARD cologuard result reportable NEGATI VE negati ve normal The Colog uard (TM) test was perfo rmed on this speci men. NEGAT KHADAR TEST RESUL T. A negat khadar Colog uard resul t indic ates a low likel ihood that a color ectal cance r (CRC) or advan crystal adeno ma (mica omato us polyp s with more advan crystal pre-m align ant featu res) is prese nt. The [facility] e that a perso n with a negat khadar Colog uard test has a color ectal cance r is less than 1 in 1500 (nega tive predi ctive value >99.9 %) or has an advan crystal adeno ma is less than 5.3% (nega tive predi ctive value 94.7% ). These data are based on a prosp ectiv e cross -sect ional study of 10,00 0 indiv [place]ual s at [place] ge risk for color ectal cance r who were scree flavio with both Colog uard and colon oscop y. (Roshan [place] al, N Engl J Med 2014; 370(1 4):12 86-12 97) The lottie l value (refe rence range ) for this assay is negat khadar. COLOG UARD RE-SC REELIZ NG RECOM MENDA TION: Perio dic color ectal cance r scree apoorva is an impor tant part of preve ntive healt hcare for asymp tomat ic indiv idual s at [place] ge risk for color ectal cance r. Follo wing a negat khadar Colog uard resul t, the Ameri can Cance r Socie ty and U.S. Multi -Soci ety Task Force scree apoorva guide lines recom mend a Colog uard re-sc reeliz ng inter genet of 3 years . Refer ences : Ameri can Cance r Socie ty Guide line for Color ectal Cance r Scree apoorva: https ://triny w.can cer.o rg/ca ncer/ colon -rect al-ca ncer/ detec tion- diagn osis- stagi ng/ac s-rec ommen datio ns.ht ml.; Aj DK, Jolene garza CR, Julio Cesar sandoval JK, Color ectal Cance r Scree apoorva: Recom menda tions for Physi cians and Patie nts from the U.S. Multi -Soci ety Task Force on Color ectal Cance r Scree apoorva , Maia hdz rolog y 2017; 112:1 016-1 030. TEST DESCR IPTIO N: Bock site algor ithmi c shreya sis of stool DNA-b iomar kers with hemog lobin immun oassa y. Quant itati ve value s of indiv idual bioma rkers are not repor table and are not assoc iated with indiv idual bioma rker resul t refer ence range s. Colog uard is inten ded for color ectal cance r scree apoovra of adult s of eithe r sex, 45 years or older , who are at [facility] for color ectal cance r (CRC) . Colog uard has been appro nhi for use by the U.S. FDA. The perfo rmanc e of Colog uard was estab lishe d in a cross secti onal study of [facility] adult s aged 50-84 . Colog uard perfo rmanc e in patie nts ages 45 to 49 years was estim ated by brielle-g mariola shreya sis of near- age group s. Colon oscop ies perfo rmed for a posit khadar resul t may find as the most clini rey signi fican t lesio n: color ectal cance r [4.0% [...] cross -sect ional scree apoorva study of 10,00 0 indiv idual s at [facility] risk for color ectal cance r who [...] inter genet is every 3 years . (Amer ican Cance r Socie ty and U.S. Multi -Soci ety Task Force ). Colog uard perfo rmanc e data in a 10,00 0 patie nt pivot al study using colon oscop y as the refer ence metho d can be acces sed at the follo wing locat ion: www.e xactl abs.c om/re saida . Addit ional descr iptio n of the Colog uard test proce ss, warni ngs and preca ution s can be found at www.c michaela robert.c om. Not Available [facility] [address], [place], [address], 07/09/2025 11:07:00 Result Notes None recorded. Problems Name Problem SNOMED Code Status Onset Date Resolution Date Notes Provider Name and Address Organization Details Recorded Time Type 2 diabetes mellitus 92532657 Active 2023 Chelsi Adameman null, [place] - [facility] 4 13:00:05 Atrial fibrillation 84100798 Active 2023 Chelsi Adameman [place], [place] [facility] 4 13:00:12 Asthma 056208721 Active 2023 Chelsi Foster null, [place] [facility] 4 13:00:18 Erectile dysfunction 791027462 Active 2023 Chelsi Foster null, [place] - [facility] 4 13:00:28 Body mass index 40+ - severely obese 537340820 Active 2023 DIOMEDES Hallman Attn: Claudio durham,[address] [place], [address], [place] - [facility] 4 10:54:02 Morbid obesity 234598058 Active 2023 DIOMEDES Hallman Attn: Claudio durham,[address] [place], [address], [place] - [facility] 4 10:54:02 Hyperlipidemia 08807217 Active 2023 DIOMEDES Hallman Attn: Claudio durham,[address] [place], [address], [place] - [facility] 4 10:55:07 Well controlled type 2 diabetes mellitus 398152850 Active 2023 DIOMEDES Hallman Attn: Claudio durham,[address] [facility], [place], [address], [facility] - [facility] 4 10:55:10 Obese class III 772839261 Active 2024 DIOMEDES Hallman Attn: Claudio durham,[address] [facility], [place], [address], [facility] 5 16:11:37 Problem Notes None recorded. Procedures Surgical History Date Name Laterality Status Provider Name and Address Organization Details Recorded Time Vasectomy completed Sandoval Griffin MA [place] - [facility] 10/11/2023 10:08:11 Imaging Results None recorded. Procedure Notes None recorded. Medical Equipment None Reported. Allergies No known drug allergies Medications Name Sig Start Date Stop Date Status Note LastModified by Organization Details LastModified Time metformin 500 mg tablet TAKE 2 TABLETS BY MOUTH ONCE DAILY WITH SUPPER 2024 active Not Available Not Available Not Avai lable atorvasta tin 20 mg tablet Take 1 tablet every day by oral route for 90 days. 2024 active Not Available Not Available Not Avai lable diltiazem CD 240 mg capsule,e xtended release 24 hr TAKE 1 CAPSULE BY MOUTH ONCE DAILY active Not Available Not Available No t Available lisinopri l 20 mg tablet Take 1 tablet by mouth once daily 2024 active Not Available Not Available Not Avai lable prednison e 20 mg tablet TAKE 2 TABLETS BY MOUTH ONCE DAILY FOR 5 DAYS 05/27 completed Not Available Not Available Not Available sildenafi l 100 mg tablet TAKE 1 TABLET BY MOUTH ONCE DAILY NEEDED 2024 active Not Available Not Available Not Avai lable acyclovir 800 mg tablet TAKE 1 TABLET BY MOUTH FIVE TIMES DAILY FOR 7 DAYS 05/27 completed Not Available Not Available Not Available glimepiri de 2 mg tablet Take 1 tablet every day by oral route. 10/10 completed Not Available Not Available Not Available glimepiri de 1 mg tablet Take 1 tablet by mouth twice daily with food 2024 active Not Available Not Available Not Avai lable metformin 1,000 mg tablet Take 1 tablet twice a day by oral route. 10/10 completed Not Available Not Available Not Available monteluka st 10 mg tablet TAKE 1 TABLET BY MOUTH ONCE DAILY active Not Available Not Available No t Available albuterol sulfate HFA 90 mcg/actua tion aerosol inhaler INHALE 2 PUFFS BY MOUTH EVERY 4 TO 6 HOURS NEEDED FOR SHORTNES S OF BREATH AND FOR WHEEZING active Not Available Not Available No t Available metformin ER 500 mg tablet,ex tended release 24 hr TAKE TWO TABLETS BY MOUTH ONCE DAILY AT DINNER 10/10 completed Not Available Not Available Not Available Eliquis 5 mg tablet TAKE 1 TABLET BY MOUTH TWICE A DAY active Not Available Not Available No t Available Eliquis 10/10 completed Not Available Not Available Not Available Jardiance 10 mg tablet TAKE 1 TABLET DAILY active Not Available Not Available No t Available omega 3,5,6,7,9 combinati on no.1 700 mg-salmon oil 1,500 mg capsule Take by oral route. 01/17 completed pt stopped Not Available Not Available Not Available albuterol 90 mcg-budes onide 80 mcg/actua tion HFA aerosol inhaler INHALE 2 PUFFS BY MOUTH EVERY 4 TO 6 HOURS NEEDED 2023 active Not Available Not Available Not Avai lable FreeStyle Carolyn 3 Plus Sensor device APPLY/RE PLACE WITH NEW SENSOR EVERY 15 DAYS FOR BLOOD SUGAR MONITORI NG 2024 active Not Available Not Available Not Avai lable Vitals Date Recorded Respiratory rate Systolic And Diastolic Provider Name and Address Organization Details Last Updated DateTime 04/24/2025 18 /min 120/82 mm[Hg] DIOMEDES Hallman Attn: Accounting,[address] [facility], [place], [address], [place] - [facility] 04/24/2025 14:18:30 Date Recorded Body height Body mass index (BMI) Body weight Oxygen saturation Heart rate Systolic And Diastolic Provider Name and Address Organization Details Last Updated DateTime 5 172.72 cm 39.7 kg/m2 601278. 61 g 96 % 80 /min 126/82 mm[Hg] Sandoval Griffin MA [place] - [facility] 13:54:02 Social History Question Answer Notes LastModified by Organizat ion Details LastModified Time Tobacco Smoking Status Former Smoker Sandoval Griffin MA [facility], [place] - [facility] 10/11/2023 09:55:46 Are You Blind Or Do You Have Difficulty Seeing? Yes Glassess Information not available 10/11/2023 What Is Your Level Of Caffeine Consumption? Moderate Soda, Diet Coke Information not available 10/11/2023 In The 14 Days Before Symptom Onset, Have You Had Close Contact With A Laboratory-confir med COVID-19 While That Case Was Ill? No Information not available 10/11/2023 In The 14 Days Before Symptom Onset, Have You Had Close Contact With A Person Who Is Under Investigation For COVID-19 While That Person Was Ill? No Information not available 10/11/2023 Have You Been To An Area Known To Be High Risk For COVID-19? No Information not available 10/11/2023 Are You Deaf Or Do You Have Serious Difficulty Hearing? No Information not available 10/11/2023 What Type Of Diet Are You Following? REGULAR Information not available 10/11/2023 Are There Any Guns Present In Your Home? No Information not available 10/11/2023 What Was The Date Of Your Most Recent Tobacco Screening? 04/24/2025 Information not available 04/24/2025 What Is Your Current Pack Years? 30ormorepack years Information not available 10/11/2023 What Is Your Relationship Status? Information not available 10/17/2024 Do You Use Your Seat Belt Or Car Seat Routinely? Yes Information not available 10/11/2023 Do You Have Smoke And Carbon Monoxide Detectors In Your Home? Yes Information not available 10/11/2023 At What Age Did You Start Smoking Tobacco? 14 Information not available 10/11/2023 How Much Tobacco Do You Smoke? No Information not available 10/11/2023 Do You Use Sunscreen Routinely? No mebyma Information not available 05/27/2024 Has Tobacco Cessation Counseling Been Provided? No Information not available 10/11/2023 Sex: Male Functional Status Question Answer Note LastModified by Organizat ion Details LastModified Time Do you use any illicit or recreational drugs? No Information not available 10/11/2023 Do you or have you ever used any other forms of tobacco or nicotine? No Information not available 10/11/2023 What is your level of alcohol consumption? None drank when he was a Kid. Information not available 10/11/2023 Are you able to care for yourself independently? Yes Information not available 10/11/2023 Mental Status None recorded. Family History Relationship Description Onset Age of this Age Resolved Age Notes LastModified by Organization Details LastModified Time Father Harmful pattern of use of alcohol tcarterma Not available 2023 10:08:23 Father Coronary arterioscler osis tcarterma Not available 2023 10:08:53 Father Depressive disorder tcarterma Not available 2023 10:09:11 Mother Malignant neoplasm of breast tcarterma Not available 2023 10:08:39 Mother Depressive disorder tcarterma Not available 2023 10:09:11 Medical History Condition Response Coronary Artery Disease N Other N Atrial Fibrillation N High Blood Pressure Y Thyroid Problems N Kidney or Bladder Problems N GI Problems N Depression N COPD N Blood Clots N Skin Problems N Anemia N Heart Attack (AL) N Diabetes Y Anxiety Disorder N Muscle, Joint, or Bone Problems N Seizures/Epilepsy N Acid Reflux (GERD) N Cancer N Stroke N Asthma Y Allergies N High Cholesterol N Hepatitis N Liver Disease N Headaches N Osteoporosis N Heart Failure Y Immunizations Vaccine Type Date Status Note Provider Nam e and Address Organization Details Recorded Time COVID-19, mRNA, LNP-S, PF, 30 mcg/0.3 mL dose 08/13/2021 completed LASHANDA Saenz, [place] - [facility] 05/24/2024 11:18:06 COVID-19, mRNA, LNP-S, PF, 30 mcg/0.3 mL dose 09/10/2020 completed LASHANDA Sa[place], [place] [facility] 05/24/2024 11:18:06 COVID-19, mRNA, LNP-S, PF, 30 mcg/0.3 mL dose 10/08/2020 completed Sandoval Griffin [place] null, [place] - [facility] 05/24/2024 11:18:06 influenza, unspecified formulation 04/29/2024 completed DIOMEDES Hallman Attn: Accounting,[address] [facility], [place], [address], [facility] 05/27/2024 11:07:29 Past Encounters Encounter ID Performer Location Encounter Start Date Encounter Closed Date Diagnosis/Indication Diagnosis SNOMED-CT Code Diagnosis ICD10 Code Diagnosis IMO Codes Diagnosis Note [id number] Aman Obando MD [facility] - [place] [address] [place] [address] 04/24/2025 13:42:55 04/30/2025 15:33:40 Obese class II 9458521741 57760 E66.812 E66.3 0540214370 discussed healthy diet, exercise, controllin g carbohydra tuan and added sugars in the diet Well contr olled type 2 diabetes mellitus 986938749 E11.9 Pt is stable on multiple medication s. due for updated a1c lab. A1c in November was 7.1%. Albumin urine testing also do Atrial fibrillation 4943 6004 I48.91 stable on CCB and anticoagul ant; UTD with cardiology appt. Dr. Donnelly at [facility] Hyperlipidemia 96465920 E78.5 stable on atorvastat in 20mg daily. due for fasting lipid panel. LDL on last labs was 74 HDL has dropped to 30 triglyceri madai at 176 total at 134 Asthma 339997665 J45.90 9 stable. no acute flare ups. on singulair 10mg daily and PRN albuterol hfa. Erectile dysfunction 860 381451 F52.21 on sildenafil 100mg PRN use. Long-term drug therapy 889798915 Z79.899 all routine labs are due. Screening for malignant neoplasm of colon 782077412 Z12.11 [id number] Patient opts for Cologuard screening method Health Concerns Section Related Observation LastModified by Organization Detai ls LastModified Time None Recorded Concern Status LastModified by Organization Details LastModified Time None Recorded Payers Encounter Date Sequence Insurance Name Policy Number Policy Rodriguez Covered Member ID Rodriguez Member ID Guarantor Name 04/24/2025 1 [facility] [id number] Luan Lund [id number] Luan Lund Notes Date Note Type Note Provider Name and Address Organization Details Recorded Time text/html HyperlipidemiaReported by Patientstable on atorvastatin 20mg daily. HypertensionReported by Patientstable on lisinopril 20mg daily, diltiazem CD 240mg that also rate controls for a-fib. DiabetesReported by Patientstable on glimepiride 1mg, jardiance 10mg, and metformin 1000mg daily. Asthma F/UReported by Patientstable on montelukast 10mg daily, and albuterol hfa PRN. no acute c/o. Atrial FibrillationReported by Patientstable on diltiazem CD 240mg daily and eliquis 5mg bid. f/u with cardiology routinely as well. DIOMEDES Hallman Attn: Accounting,[address] [facility], [place], [address], [facility] 05/06/2025 13:33:24
--- OUTSIDE RECORDS SUMMARY | 2025-07-22 00:22 | XMS_ITS | Clinical Summary ---
Author Organization [facility] Address [address] [place] [address] Care Team Providers Care Audit Tech Name Role Phone Unavailable Primary Care Provider Unavailabl e Source Comments [facility],non-owned Affiliates and Associated Physician Practices is amultiple site organization consisting of ambulatory clinics and hospital sitesin [place], [place], [place] and [place]. This disclosure is being madepursuant to the Care Everywhere program and may not contain all information available regarding this patient. Last updated 18.[facility] Allergies No known active allergies Medications * Be aware that medications may not be up to date on this document. Alwaysverify current medications with the patient. METFORMIN HCL PO Active montelukast (SINGULAIR) 10 MG tablet Take 10 mg by mouth at bedtime Active ATORVASTATIN CALCIUM PO Active Albuterol Sulfate (PROAIR HFA IN) Active Fish Oil-Cholecalcif abena (FISH OIL + D3) 4461-1248 MG-UNIT CAPS Active HYDROCHLOROTHIA ZIDE PO Active LISINOPRIL PO Active Apixaban (ELIQUIS PO) Active DiltiaZEM HCl (CARDIZEM PO) Active methylPREDNISol one (MEDROL DOSEPAK) 4 MG tabletIndicatio ns:Cough variant asthma (HCC) Take by mouth as directed 1 Each 0 05/14/2016 Active Social History Tobacco Use Types Packs/Day Years Used Date Smoking Tobacco: Never Assessed Sex and Gender Information Value Date Recorded Sex Assigned at Not on file Legal Sex Male 2:40 PM CDT Gender Identity Not on file Sexual Orientation Not on file Last Filed Vital Signs Vital Sign Reading Time Taken Comments Blood Pressure 130/80 05/14/2016 3:21 PM CDT Pulse 90 05/14/2016 3:21 PM CDT Temperature 37 C (98.6 F) 05/14/2016 3:21 PM CDT Respiratory Rate 18 05/14/2016 3:21 PM CDT Oxygen Saturation 96% 05/14/2016 3:21 PM CDT Inhaled Oxygen Concentration - - Weight 117.5 kg (259 lb) 05/14/2016 3:21 PM CDT Height 175.3 cm (5' 9) 05/14/2016 3:21 PM CDT Body Mass Index 38.25 05/14/2016 3:21 PM CDT Plan of Treatment Health Maintenance Due Date Last Done Comments COLOGUARD (AGES 45-75) - COL ON CA SCREENING 1972 COLON MONITORING 1972 COLONOSCOPY - COLON CA SCREENING 1972 CT COLONOGRAPHY - COLON CA SCREENING 1972 Colorectal Cancer Screening 1972 FIT - COLON CA SCREENING 1972 FLEX SIG - COLON CA SCREENING 1972 HIV SCREENING 12/09/1987 HEPATITIS C SCREENING 12/04/1990 DTAP/TDAP/TD VACCINES (1 - Tdap) 12/09/1991 HEPATITIS B VACCINE (1 of 3 - 19+ 3-dose series) 12/09/1991 PNEUMOCOCCAL VACCINE 50+ (1 of 1 - PCV) 2022 ZOSTER VACCINE (1 of 2) 2022 DEPRESSION SCREENING 08/07/2024 COVID-19 VACCINE (1 - 2024-2 6 season) 2025 INFLUENZA VACCINE (#1) 2025 HIB VACCINE Aged Out No longer eligi ble based on patient's age to complete this topic HPV VACCINE Aged Out No longer eligi ble based on patient's age to complete this topic MENINGOCOCCAL (Group B) VACC INE SHARED DECISION-MAKING Aged Out No longer eligibl e based on patient's age to complete this topic MENINGOCOCCAL GROUPS A/C/Y/W VACCINE Aged Out No longer eligible b ased on patient's age to complete this topic Insurance ANTHEM
--- OUTSIDE RECORDS SUMMARY | 2025-07-22 00:22 | XMS_ITS | Data Portability ---
Author Organization [facility] Address [address] [place] [address] Care Team Providers Care Event Planning Manager Name Role Phone ANGELA MAX Primary Care Provider [phone] Assessment Encounter Date Assessment Date Assessment LastModified by Organization Details LastModified Time 05/27/2024 05/27/2024 PSA was normal in November of 2023 Not available 05/27/2024 10:55:35 10/17/2024 10/17/2024 PSA was normal in November of 2023 Not available 10/17/2024 14:56:43 04/24/2025 04/24/2025 PSA was normal in November of 2024 [facility] Not available 04/24/2025 14:06:46 Plan of Treatment Reminders Order Date Submit Date Provider Last Modified By Organization Details Last Modified Time Details Appointments ANY 15 2025 01:45P M DIOMEDES Hallman Not available Not available Not available Lab HbA1c (hemoglob in A1c), blood 2024 025 [email or web address] [facility], [address], [place], [address], 07/17/2025 10:35:52 microalbu min/creat inine, mass ratio, urine 2024 025 KRISTEN [facility], [address], [place], [address], 04/24/2025 14:02:43 microalbu min, urine 2024 025 KRISTEN [facility], [address], [place], [address], 04/24/2025 14:02:44 noninvasi ve colorecta l cancer DNA + occult blood screening , QL, stool 2024 025 RADOM [facility], [address], [address], [place], [address], 07/09/2025 11:07:00 CMP, serum or plasma 2024 025 [email or web address], [address], [place], [address], 07/17/2025 10:35:51 CBC w/ auto diff 2024 025 [email or web address], [address], [place], [address], 07/17/2025 10:35:51 lipid panel, serum 2024 025 [email or web address], [address], [place], [address], 07/17/2025 10:35:52 HbA1c (hemoglob in A1c), blood 2024 025 RADOM [facility], [address], [place], [address], 11/21/2024 07:18:25 PSA, total, serum or plasma 2024 025 RADOM [facility], [address], [place], [address], 11/21/2024 07:18:27 CMP, serum or plasma 2024 025 RADOM [facility], [address], [place], [address], 11/21/2024 07:18:22 CBC w/ auto diff 2024 025 KRISTEN [facility], [address], [place], [address], 11/21/2024 07:18:26 TSH + free T4, serum 2024 025 KRISTEN [facility], [address], [place], [address], 11/21/2024 07:18:22 cobalamin and folate panel, serum 2024 025 KRISTEN [facility]ck[facility], [address], [place], [address], 11/21/2024 07:18:24 lipid panel, serum 2024 025 KRISTEN Mckoy, [address], [place], [address], 11/21/2024 07:18:20 HbA1c (hemoglob in A1c), blood 2023 024 KRISTEN Mckoy, [address], [place], [address], 07/26/2024 13:07:45 microalbu min, urine 2023 024 KRISTEN Mckoy, [address], [place], [address], 07/26/2024 13:25:51 microalbu min/creat inine, mass ratio, urine 2023 024 KRISTEN Mckoy, [address], [place], [address], 07/26/2024 13:07:42 CMP, serum or plasma 2023 024 KRISTEN Mckoy, [address], [place], [address], 07/26/2024 13:07:44 CBC w/ auto diff 2023 024 KRISTEN Mckoy, [address], [place], [address], 07/26/2024 13:07:47 lipid panel, serum 2023 024 KRISTEN Mckoy, [address], [place], [address], 07/26/2024 13:07:43 HbA1c (hemoglob in A1c), blood 2023 024 KRISTEN Mckoy, [address], [place], [address], 11/26/2023 08:10:59 PSA, total, serum or plasma 2023 024 KRISTEN Mckoy, [address], [place], [address], 11/26/2023 08:11:00 TSH + free T4, serum 2023 024 KRISTEN Mckoy, [address], [place], [address], 11/26/2023 08:10:57 CMP, serum or plasma 2023 024 KRISTEN Mckoy, [address], [place], [address], 11/26/2023 08:10:58 CBC w/ auto diff 2023 024 KRISTEN Mckoy, [address], [place], [address], 11/26/2023 08:10:59 lipid panel, serum 2023 024 KRISTEN Mckoy, [address], [place], [address], 11/26/2023 08:10:58 Referral None recorded. Procedures None recorded. Surgeries None recorded. Imaging CT, abdomen + pelvis, w/ contrast 2024 025 KRISTEN [facility], [address] [address], [place], [address], 03/08/2025 08:08:38 Medication Orders sildenafi l 100 mg tablet 2023 024 [facility] [address], [place], [address], 10/17/2024 14:36:28 Patient TargetsNo targets recorded. Patient Instructions Encounter Date Encounter Id Patient Instructions Last Modified By Organization Details Last Modified Time 05/27/2024 [id number] A healthy lifestyle: care instructions Not available 05/27/2024 11:02:32 10/17/2024 [id number] A healthy lifestyle: care instructions Not available 10/17/2024 15:03:39 01/17/2025 [id number] A healthy lifestyle: care instructions Not available 01/17/2025 16:12:39 04/24/2025 [id number] A healthy lifestyle: care instructions Not available 04/24/2025 14:02:31 Reason for Referral None Reported. Results Created Date Observation Date Name Description Value Unit Range Abnormal Flag Note LastModifiedBy Organization Detail LastModifiedTime 11/25/1911/26/2023 TSH+F REE T4 TSH 1.180 uIU/m L 0.450- 4.500 Not Available [facility] ([facility]) [address] [facility], [place], [address], 11/26/2023 08:10:57 11/25/1911/26/2023 TSH+F REE T4 T4,free(dire ct) 1.11 NG/dL 0.82-1 .77 Not Available [facility] ([facility]) [address] [facility], [place], [address], 11/26/2023 08:10:57 11/25/19 24 11/26/2023 LIPID PANEL cholesterol, total 120 mg/dL 100-19 9 Not Available [facility] ([facility]) [address] [place], [address], 11/26/2023 08:10:58 11/25/19 24 11/26/2023 LIPID PANEL triglyceride s 115 mg/dL 0-149 Not Available [facility] ([facility]) [address] [place], [address], 11/26/2023 08:10:58 11/25/19 24 11/26/2023 LIPID PANEL HDL cholesterol 34 mg/dL >39 below low normal Not Available [facility] ([facility]) [address] [place], [address], 11/26/2023 08:10:58 11/25/19 24 11/26/2023 LIPID PANEL VLDL cholesterol laura 21 mg/dL 5-40 Not Available [facility] ([facility]) [address] [place], [address], 11/26/2023 08:10:58 11/25/19 24 11/26/2023 LIPID PANEL LDL chol calc ([facility]) 65 mg/dL 0-99 Not Available [facility] ([facility]) [address] [place], [address], 11/26/2023 08:10:58 11/25/19 24 11/26/2023 COMP. METAB OLIC PANEL (14) glucose 104 mg/dL 70-99 above high normal Not Available [facility] ([facility]) [address] [place], [address], 11/26/2023 08:10:58 11/25/19 24 11/26/2023 COMP. METAB OLIC PANEL (14) BUN 20 mg/dL 6-24 Not Available [facility] ([facility]) [address] [place], [address], 11/26/2023 08:10:58 11/25/19 24 11/26/2023 COMP. METAB OLIC PANEL (14) creatinine 0.96 mg/dL 0.76-1 .27 Not Available [facility] ([facility]) [address] [facility], [place], [address], 11/26/2023 08:10:58 11/25/19 24 11/26/2023 COMP. METAB OLIC PANEL (14) eGFR 96 mL/mi n/1.7 3 >59 Not Available [facility] ([facility]) [address] [facility], [place], [address], 11/26/2023 08:10:58 11/25/19 24 11/26/2023 COMP. METAB OLIC PANEL (14) BUN/creatini ne ratio 21 9-20 above high normal Not Available [facility] ([facility]) [address] [facility], [place], [address], 11/26/2023 08:10:58 11/25/19 24 11/26/2023 COMP. METAB OLIC PANEL (14) sodium 138 mmol/ L 134-14 4 Not Available [facility] ([facility]) [address] [facility], [place], [address], 11/26/2023 08:10:58 11/25/19 24 11/26/2023 COMP. METAB OLIC PANEL (14) potassium 4.2 mmol/ L 3.5-5. 2 Not Available [facility] ([facility]) [address] [facility], [place], [address], 11/26/2023 08:10:58 11/25/19 24 11/26/2023 COMP. METAB OLIC PANEL (14) chloride 100 mmol/ L 96-106 Not Available [facility] ([facility]) [address] [facility], [place], [address], 11/26/2023 08:10:58 11/25/19 24 11/26/2023 COMP. METAB OLIC PANEL (14) carbon dioxide, total 23 mmol/ L 20- Not Available [facility] ([facility]) [address] [facility], [place], [address], 11/26/2023 08:10:58 11/25/19 24 11/26/2023 COMP. METAB OLIC PANEL (14) calcium 9.0 mg/dL 8.7-10 .2 Not Available [facility] ([facility]) [address] [facility], [place], [address], 11/26/2023 08:10:58 11/25/19 24 11/26/2023 COMP. METAB OLIC PANEL (14) protein, total 7.4 g/dL 6.0-8. 5 Not Available [facility] ([facility]) [address] [facility], [place], [address], 11/26/2023 08:10:58 11/25/19 24 11/26/2023 COMP. METAB OLIC PANEL (14) albumin 4.3 g/dL 4.1-5. 1 Not Available [facility] ([facility]) [address] [facility], [place], [address], 11/26/2023 08:10:58 11/25/19 24 11/26/2023 COMP. METAB OLIC PANEL (14) globulin, total 3.1 g/dL 1.5-4. 5 Not Available [facility] ([facility]) [address] [facility], [place], [address], 11/26/2023 08:10:58 11/25/19 24 11/26/2023 COMP. METAB OLIC PANEL (14) A/G ratio 1.4 1.2-2. 2 Not Available [facility] ([facility]) [address] [facility], [place], [address], 11/26/2023 08:10:58 11/25/19 24 11/26/2023 COMP. METAB OLIC PANEL (14) bilirubin, total 0.7 mg/dL 0.0-1. 2 Not Available [facility] ([facility]) [address] [place], [address], 11/26/2023 08:10:58 11/25/19 24 11/26/2023 COMP. METAB OLIC PANEL (14) alkaline phosphatase 85 IU/L 44-121 Not Available [facility] ([facility]) [address] [place], [address], 11/26/2023 08:10:58 11/25/19 24 11/26/2023 COMP. METAB OLIC PANEL (14) AST (SGOT) 24 IU/L 0-40 Not Available [facility] ([facility]) [address] [place], [address], 11/26/2023 08:10:58 11/25/19 24 11/26/2023 COMP. METAB OLIC PANEL (14) ALT (SGPT) 30 IU/L 0-44 Not Available [facility] ([facility]) [address] [place], [address], 11/26/2023 08:10:58 11/25/19 24 11/26/2023 HEMOG LOBIN A1C hemoglobin A1C 6.3 % 4.8-5. 6 above high normal Predi abete s: 5.7 - 6.4 Diabe tuan: >6.4 Glyce amadeo contr ol for adult s with diabe tuan: <7.0 Not Available [facility] ([facility]) [address] [place], [address], 11/26/2023 08:10:59 11/25/19 24 11/26/2023 CBC WITH DIFFE RENTI AL/PL ATELE T WBC 8.2 x10e3 /uL 3.4-10 .8 Not Available [facility] ([facility]) [address] [place], [address], 11/26/2023 08:10:59 11/25/19 24 11/26/2023 CBC WITH DIFFE RENTI AL/PL ATELE T RBC 5.34 x10e6 /uL 4.14-5 .80 Not Available [facility] ([facility]) [address] [place], [address], 11/26/2023 08:10:59 11/25/19 24 11/26/2023 CBC WITH DIFFE RENTI AL/PL ATELE T hemoglobin 15.4 g/dL 13.0-1 7.7 Not Available [facility] ([facility]) [address] [place], [address], 11/26/2023 08:10:59 11/25/19 24 11/26/2023 CBC WITH DIFFE RENTI AL/PL ATELE T hematocrit 47.0 % 37.5-5 1.0 Not Available [facility] ([facility]) [address] [place], [address], 11/26/2023 08:10:59 11/25/19 24 11/26/2023 CBC WITH DIFFE RENTI AL/PL ATELE T MCV 88 fL 79-97 Not Available [facility] ([facility]) [address] [place], [address], 11/26/2023 08:10:59 11/25/19 24 11/26/2023 CBC WITH DIFFE RENTI AL/PL ATELE T MCH 28.8 pg 26.6-3 3.0 Not Available [facility] ([facility]) [address] [place], [address], 11/26/2023 08:10:59 11/25/19 24 11/26/2023 CBC WITH DIFFE RENTI AL/PL ATELE T MCHC 32.8 g/dL 31.5-3 5.7 Not Available [facility] ([facility]) [address] [place], [address], 11/26/2023 08:10:59 11/25/19 24 11/26/2023 CBC WITH DIFFE RENTI AL/PL ATELE T RDW 12.8 % 11.6-1 5.4 Not Available [facility] ([facility]) [address] [facility], [place], [address], 11/26/2023 08:10:59 11/25/19 24 11/26/2023 CBC WITH DIFFE RENTI AL/PL ATELE T platelets 226 x10e3 /uL 150-45 0 Not Available [facility] ([facility]) [address] [facility], [place], [address], 11/26/2023 08:10:59 11/25/19 24 11/26/2023 CBC WITH DIFFE RENTI AL/PL ATELE T neutrophils 57 % notest ab. Not Available [facility] ([facility]) [address] [facility], [place], [address], 11/26/2023 08:10:59 11/25/19 24 11/26/2023 CBC WITH DIFFE RENTI AL/PL ATELE T lymphs 31 % notest ab. Not Available [facility] ([facility]) [address] [facility], [place], [address], 11/26/2023 08:10:59 11/25/19 24 11/26/2023 CBC WITH DIFFE RENTI AL/PL ATELE T monocytes 8 % notest ab. Not Available [facility] ([facility]) [address] [facility], [place], [address], 11/26/2023 08:10:59 11/25/19 24 11/26/2023 CBC WITH DIFFE RENTI AL/PL ATELE T eos 3 % notest ab. Not Available [facility] ([facility]) [address] [facility], [place], [address], 11/26/2023 08:10:59 11/25/19 24 11/26/2023 CBC WITH DIFFE RENTI AL/PL ATELE T basos 1 % notest ab. Not Available [facility] ([facility]) [address] [facility], [place], [address], 11/26/2023 08:10:59 11/25/19 24 11/26/2023 CBC WITH DIFFE RENTI AL/PL ATELE T neutrophils (absolute) 4.7 x10e3 /uL 1.4-7. 0 Not Available [facility] ([facility]) [address] [facility], [place], [address], 11/26/2023 08:10:59 11/25/19 24 11/26/2023 CBC WITH DIFFE RENTI AL/PL ATELE T lymphs (absolute) 2.5 x10e3 /uL 0.7-3. 1 Not Available [facility] ([facility]) [address] [place], [address], 11/26/2023 08:10:59 11/25/19 24 11/26/2023 CBC WITH DIFFE RENTI AL/PL ATELE T monocytes(ab solute) 0.6 x10e3 /uL 0.1-0. 9 Not Available [facility] ([facility]) [address] [place], [address], 11/26/2023 08:10:59 11/25/19 24 11/26/2023 CBC WITH DIFFE RENTI AL/PL ATELE T eos (absolute) 0.2 x10e3 /uL 0.0-0. 4 Not Available [facility] ([facility]) [address] [place], [address], 11/26/2023 08:10:59 11/25/19 24 11/26/2023 CBC WITH DIFFE RENTI AL/PL ATELE T baso (absolute) 0.1 x10e3 /uL 0.0-0. 2 Not Available [facility] ([facility]) [address] [place], [address], 11/26/2023 08:10:59 11/25/19 24 11/26/2023 CBC WITH DIFFE RENTI AL/PL ATELE T immature granulocytes 0 % notest ab. Not Available [facility] ([facility]) [address] [facility], [place], [address], 11/26/2023 08:10:59 11/25/19 24 11/26/2023 CBC WITH DIFFE RENTI AL/PL ATELE T immature grans (abs) 0.0 x10e3 /uL 0.0-0. 1 Not Available [facility] ([facility]) [address] [facility], [place], [address], 11/26/2023 08:10:59 11/25/19 24 11/26/2023 PROST ATE-S PECIF IC AG prostate specific Ag 0.2 NG/mL 0.0-4. 0 Tanner ECLIA metho dolog y. Accor ding to the Ameri can [employer] iatio n, Serum PSA shoul d decre ase and remai n at undet ectab le level s after radic al prost atect daphnie. The AUA defin es bioch emica l recur rence as an initi al PSA value 0.2 ng/mL or great er follo wed by a subse quent confi rmato ry PSA value 0.2 ng/mL or great er. Value s obtai flavio with diffe rent assay metho ds or kits canno t be used inter barrera eably . Resul ts canno t be inter prete d as absol benton evide nce of the prese nce or absen ce of migue delarosa se. Not Available [facility] ([facility]) [address] [facility], [place], [address], 11/26/2023 08:11:00 07/25/20 24 07/26/2024 ALBUM IN/CR EAT RATIO , RANDO M UR creatinine, urine 73.3 mg/dL notest ab. Not Available [facility] ([facility]) [address] [facility], [place], [address], 07/26/2024 13:07:42 07/25/20 24 07/26/2024 ALBUM IN/CR EAT RATIO , ANTONIOO M UR albumin, urine 14.4 ug/mL notest ab. Not Available [facility] ([facility]) [address] [place], [address], 07/26/2024 13:07:42 07/25/20 24 07/26/2024 ALBUM IN/CR EAT RATIO , RANDO M UR alb/creat ratio 20 mg/g_ creat 0-29 Jennifer l: 0 - 29 Moder ately incre ased: 30 - 300 Sever aaron incre ased: >300 Not Available [facility] ([facility]) [address] [place], [address], 07/26/2024 13:07:42 07/25/20 24 07/26/2024 LIPID PANEL W/ CHOL/ HDL RATIO cholesterol, total 131 mg/dL 100-19 9 Not Available [facility] ([facility]) [address] [place], [address], 07/26/2024 13:07:43 07/25/20 24 07/26/2024 LIPID PANEL W/ CHOL/ HDL RATIO triglyceride s 149 mg/dL 0-149 Not Available [facility] ([facility]) [address] [place], [address], 07/26/2024 13:07:43 07/25/20 24 07/26/2024 LIPID PANEL W/ CHOL/ HDL RATIO HDL cholesterol 33 mg/dL >39 below low normal Not Available [facility] ([facility]) [address] [place], [address], 07/26/2024 13:07:43 07/25/20 24 07/26/2024 LIPID PANEL W/ CHOL/ HDL RATIO VLDL cholesterol laura 26 mg/dL 5-40 Not Available [facility] ([facility]) [address] [place], [address], 07/26/2024 13:07:43 07/25/20 24 07/26/2024 LIPID PANEL W/ CHOL/ HDL RATIO LDL chol calc ([facility]) 72 mg/dL 0-99 Not Available [facility] ([facility]) [address] [place], [address], 07/26/2024 13:07:43 07/25/20 24 07/26/2024 LIPID PANEL W/ CHOL/ HDL RATIO T. chol/HDL ratio 4.0 ratio 0.0-5. 0 T. Chol/ HDL Ratio Men Women 1/2 Avg.R isk 3.4 3.3 Avg.R isk 5.0 4.4 2X Avg.R isk 9.6 7.1 3X Avg.R isk 23.4 11.0 Not Available [facility] ([facility]) [address] [place], [address], 07/26/2024 13:07:43 07/25/20 24 07/26/2024 COMP. METAB OLIC PANEL (14) glucose 106 mg/dL 70-99 above high normal Not Available [facility] ([facility]) [address] [place], [address], 07/26/2024 13:07:44 07/25/20 24 07/26/2024 COMP. METAB OLIC PANEL (14) BUN 16 mg/dL 6-24 Not Available [facility] ([facility]) [address] [place], [address], 07/26/2024 13:07:44 07/25/20 24 07/26/2024 COMP. METAB OLIC PANEL (14) creatinine 0.87 mg/dL 0.76-1 .27 Not Available [facility] ([facility]) [address] [place], [address], 07/26/2024 13:07:44 07/25/20 24 07/26/2024 COMP. METAB OLIC PANEL (14) eGFR 104 mL/mi n/1.7 3 >59 Not Available [facility] ([facility]) [address] [facility], [place], [address], 07/26/2024 13:07:44 07/25/20 24 07/26/2024 COMP. METAB OLIC PANEL (14) BUN/creatini ne ratio 18 9-20 Not Available [facility] ([facility]) [address] [facility], [place], [address], 07/26/2024 13:07:44 07/25/20 24 07/26/2024 COMP. METAB OLIC PANEL (14) sodium 139 mmol/ L 134-14 4 Not Available [facility] ([facility]) [address] [facility], [place], [address], 07/26/2024 13:07:44 07/25/20 24 07/26/2024 COMP. METAB OLIC PANEL (14) potassium 4.1 mmol/ L 3.5-5. 2 Not Available [facility] ([facility]) [address] [facility], [place], [address], 07/26/2024 13:07:44 07/25/20 24 07/26/2024 COMP. METAB OLIC PANEL (14) chloride 101 mmol/ L 96-106 Not Available [facility] ([facility]) [address] [facility] [place], [address], 07/26/2024 13:07:44 07/25/20 24 07/26/2024 COMP. METAB OLIC PANEL (14) carbon dioxide, total 24 mmol/ L 20-29 Not Available [facility] ([facility]) [address] [place], [address], 07/26/2024 13:07:44 07/25/20 24 07/26/2024 COMP. METAB OLIC PANEL (14) calcium 8.8 mg/dL 8.7-10 .2 Not Available [facility] ([facility]) [address] [place], [address], 07/26/2024 13:07:44 07/25/20 24 07/26/2024 COMP. METAB OLIC PANEL (14) protein, total 7.3 g/dL 6.0-8. 5 Not Available [facility] ([facility]) [address], [place], [address], 07/26/2024 13:07:44 07/25/20 24 07/26/2024 COMP. METAB OLIC PANEL (14) albumin 4.3 g/dL 3.8-4. 9 Not Available [facility] ([facility]) [address] [place], [address], 07/26/2024 13:07:44 07/25/20 24 07/26/2024 COMP. METAB OLIC PANEL (14) globulin, total 3.0 g/dL 1.5-4. 5 Not Available [facility] ([facility]) [address] [facility], [place], [address], 07/26/2024 13:07:44 07/25/20 24 07/26/2024 COMP. METAB OLIC PANEL (14) bilirubin, total 0.9 mg/dL 0.0-1. 2 Not Available [facility] ([facility]) [address] [facility], [place], [address], 07/26/2024 13:07:44 07/25/20 24 07/26/2024 COMP. METAB OLIC PANEL (14) alkaline phosphatase 86 IU/L 44-121 Not Available [facility] ([facility]) [address] [facility], [place], [address], 07/26/2024 13:07:44 07/25/20 24 07/26/2024 COMP. METAB OLIC PANEL (14) AST (SGOT) 36 IU/L 0-40 Not Available [facility] ([facility]) [address] [facility], [place], [address], 07/26/2024 13:07:44 07/25/20 24 07/26/2024 COMP. METAB OLIC PANEL (14) ALT (SGPT) 45 IU/L 0-44 above high normal Not Available [facility] ([facility]) [address] [facility], [place], [address], 07/26/2024 13:07:44 07/25/20 24 07/26/2024 HEMOG LOBIN A1C hemoglobin A1C 7.1 % 4.8-5. 6 above high normal Predi abete s: 5.7 - 6.4 Diabe tuan: >6.4 Glyce amadeo contr ol for adult s with diabe tuan: <7.0 Not Available [facility] ([facility]) [address] [facility], [place], [address], 07/26/2024 13:07:45 07/25/20 24 07/26/2024 CBC WITH DIFFE RENTI AL/PL ATELE T WBC 8.1 x10e3 /uL 3.4-10 .8 Not Available [facility] ([facility]) [address] [place], [address], 07/26/2024 13:07:46 07/25/20 24 07/26/2024 CBC WITH DIFFE RENTI AL/PL ATELE T RBC 5.42 x10e6 /uL 4.14-5 .80 Not Available [facility] ([facility]) [address] [facility], [place], [address], 07/26/2024 13:07:46 07/25/20 24 07/26/2024 CBC WITH DIFFE RENTI AL/PL ATELE T hemoglobin 16.0 g/dL 13.0-1 7.7 Not Available [facility] ([facility]) [address] [place], [address], 07/26/2024 13:07:46 07/25/20 24 07/26/2024 CBC WITH DIFFE RENTI AL/PL ATELE T hematocrit 48.8 % 37.5-5 1.0 Not Available [facility] ([facility]) [address] [facility], [place], [address], 07/26/2024 13:07:46 07/25/20 24 07/26/2024 CBC WITH DIFFE RENTI AL/PL ATELE T MCV 90 fL 79-97 Not Available [facility] ([facility]) [address] [facility], [place], [address], 07/26/2024 13:07:46 07/25/20 24 07/26/2024 CBC WITH DIFFE RENTI AL/PL ATELE T MCH 29.5 pg 26.6-3 3.0 Not Available [facility] ([facility]) [address] [facility], [place], [address], 07/26/2024 13:07:46 07/25/20 24 07/26/2024 CBC WITH DIFFE RENTI AL/PL ATELE T MCHC 32.8 g/dL 31.5-3 5.7 Not Available [facility] ([facility]) [address] [facility], [place], [address], 07/26/2024 13:07:46 07/25/20 24 07/26/2024 CBC WITH DIFFE RENTI AL/PL ATELE T RDW 12.6 % 11.6-1 5.4 Not Available [facility] ([facility]) [address] [facility], [place], [address], 07/26/2024 13:07:46 07/25/20 24 07/26/2024 CBC WITH DIFFE RENTI AL/PL ATELE T platelets 217 x10e3 /uL 150-45 0 Not Available [facility] ([facility]) [address] [facility], [place], [address], 07/26/2024 13:07:46 07/25/20 24 07/26/2024 CBC WITH DIFFE RENTI AL/PL ATELE T neutrophils 58 % notest ab. Not Available [facility] ([facility]) [address] [facility], [place], [address], 07/26/2024 13:07:46 07/25/20 24 07/26/2024 CBC WITH DIFFE RENTI AL/PL ATELE T lymphs 29 % notest ab. Not Available [facility] ([facility]) [address] [facility], [place], [address], 07/26/2024 13:07:46 07/25/20 24 07/26/2024 CBC WITH DIFFE RENTI AL/PL ATELE T monocytes 9 % notest ab. Not Available [facility] ([facility]) [address] [facility], [place], [address], 07/26/2024 13:07:46 07/25/20 24 07/26/2024 CBC WITH DIFFE RENTI AL/PL ATELE T eos 3 % notest ab. Not Available [facility] ([facility]) [address] [facility], [place], [address], 07/26/2024 13:07:46 07/25/20 24 07/26/2024 CBC WITH DIFFE RENTI AL/PL ATELE T basos 1 % notest ab. Not Available [facility] ([facility]) [address] [place], [address], 07/26/2024 13:07:46 07/25/20 24 07/26/2024 CBC WITH DIFFE RENTI AL/PL ATELE T neutrophils (absolute) 4.7 x10e3 /uL 1.4-7. 0 Not Available [facility] ([facility]) [address] [facility], [place], [address], 07/26/2024 13:07:46 07/25/20 24 07/26/2024 CBC WITH DIFFE RENTI AL/PL ATELE T lymphs (absolute) 2.4 x10e3 /uL 0.7-3. 1 Not Available [facility] ([facility]) [address] [facility], [place], [address], 07/26/2024 13:07:46 07/25/20 24 07/26/2024 CBC WITH DIFFE RENTI AL/PL ATELE T monocytes(ab solute) 0.7 x10e3 /uL 0.1-0. 9 Not Available [facility] ([facility]) [address] [facility], [place], [address], 07/26/2024 13:07:46 07/25/20 24 07/26/2024 CBC WITH DIFFE RENTI AL/PL ATELE T eos (absolute) 0.3 x10e3 /uL 0.0-0. 4 Not Available [facility] ([facility]) [address] [facility], [place], [address], 07/26/2024 13:07:46 07/25/20 24 07/26/2024 CBC WITH DIFFE RENTI AL/PL ATELE T baso (absolute) 0.1 x10e3 /uL 0.0-0. 2 Not Available [facility] ([facility]) [address] [facility], [place], [address], 07/26/2024 13:07:46 07/25/20 24 07/26/2024 CBC WITH DIFFE RENTI AL/PL ATELE T immature granulocytes 0 % notest ab. Not Available [facility] ([facility]) [address] [place], [address], 07/26/2024 13:07:46 07/25/20 24 07/26/2024 CBC WITH DIFFE RENTI AL/PL ATELE T immature grans (abs) 0.0 x10e3 /uL 0.0-0. 1 Not Available [facility] ([facility]) [address] [place], [address], 07/26/2024 13:07:46 11/21/19 25 11/21/2024 LIPID PANEL W/ CHOL/ HDL RATIO cholesterol, total 134 mg/dL 100-19 9 Not Available [facility] ([facility]) [address] [place], [address], 11/21/2024 07:18:20 11/21/19 25 11/21/2024 LIPID PANEL W/ CHOL/ HDL RATIO triglyceride s 176 mg/dL 0-149 above high normal Not Available [facility] ([facility]) [address] [place], [address], 11/21/2024 07:18:20 11/21/19 25 11/21/2024 LIPID PANEL W/ CHOL/ HDL RATIO HDL cholesterol 30 mg/dL >39 below low normal Not Available [facility] ([facility]) [address] [place], [address], 11/21/2024 07:18:20 11/21/19 25 11/21/2024 LIPID PANEL W/ CHOL/ HDL RATIO VLDL cholesterol laura 30 mg/dL 5-40 Not Available [facility] ([facility]) [address] [place], [address], 11/21/2024 07:18:20 11/21/19 25 11/21/2024 LIPID PANEL W/ CHOL/ HDL RATIO LDL chol calc ([facility]) 74 mg/dL 0-99 Not Available [facility] ([facility]) [address] [place], [address], 11/21/2024 07:18:20 11/21/19 25 11/21/2024 LIPID PANEL W/ CHOL/ HDL RATIO T. chol/HDL ratio 4.5 ratio 0.0-5. 0 T. Chol/ HDL Ratio Men Women 1/2 Avg.R isk 3.4 3.3 Avg.R isk 5.0 4.4 2X Avg.R isk 9.6 7.1 3X Avg.R isk 23.4 11.0 Not Available [facility] ([facility]) [address] [place], [address], 11/21/2024 07:18:20 11/21/19 25 11/21/2024 TSH+F REE T4 TSH 1.210 uIU/m L 0.450- 4.500 Not Available [facility] ([facility]) [address] [place], [address], 11/21/2024 07:18:21 11/21/19 25 11/21/2024 TSH+F REE T4 T4,free(dire ct) 1.12 NG/dL 0.82-1 .77 Not Available [facility] ([facility]) [address] [place], [address], 11/21/2024 07:18:21 11/21/19 25 11/21/2024 COMP. METAB OLIC PANEL (14) glucose 108 mg/dL 70-99 above high normal Not Available [facility] ([facility]) [address] [place], [address], 11/21/2024 07:18:22 11/21/19 25 11/21/2024 COMP. METAB OLIC PANEL (14) BUN 24 mg/dL 6-24 Not Available [facility] ([facility]) [address] [place], [address], 11/21/2024 07:18:22 11/21/19 25 11/21/2024 COMP. METAB OLIC PANEL (14) creatinine 0.98 mg/dL 0.76-1 .27 Not Available [facility] ([facility]) [address] [place], [address], 11/21/2024 07:18:22 11/21/19 25 11/21/2024 COMP. METAB OLIC PANEL (14) eGFR 93 mL/mi n/1.7 3 >59 Not Available [facility] ([facility]) [address] [place], [address], 11/21/2024 07:18:22 11/21/19 25 11/21/2024 COMP. METAB OLIC PANEL (14) BUN/creatini ne ratio 24 9-20 above high normal Not Available [facility] ([facility]) [address] [facility] [place], [address], 11/21/2024 07:18:22 11/21/19 25 11/21/2024 COMP. METAB OLIC PANEL (14) sodium 137 mmol/ L 134-14 4 Not Available [facility] ([facility]) [address] [facility] [place], [address], 11/21/2024 07:18:22 11/21/19 25 11/21/2024 COMP. METAB OLIC PANEL (14) potassium 4.3 mmol/ L 3.5-5. 2 Not Available [facility] ([facility]) [address] [facility] [place], [address], 11/21/2024 07:18:22 11/21/19 25 11/21/2024 COMP. METAB OLIC PANEL (14) chloride 100 mmol/ L 96-106 Not Available [facility] ([facility]) [address] [facility] [place], [address], 11/21/2024 07:18:22 11/21/19 25 11/21/2024 COMP. METAB OLIC PANEL (14) carbon dioxide, total 22 mmol/ L 20-29 Not Available [facility] ([facility]) [address] [facility] [place], [address], 11/21/2024 07:18:22 11/21/19 25 11/21/2024 COMP. METAB OLIC PANEL (14) calcium 9.1 mg/dL 8.7-10 .2 Not Available [facility] ([facility]) [address] [facility] [place], [address], 11/21/2024 07:18:22 11/21/19 25 11/21/2024 COMP. METAB OLIC PANEL (14) protein, total 7.4 g/dL 6.0-8. 5 Not Available [facility] ([facility]) [address] [facility], [place], [address], 11/21/2024 07:18:22 11/21/19 25 11/21/2024 COMP. METAB OLIC PANEL (14) albumin 4.4 g/dL 3.8-4. 9 Not Available [facility] ([facility]) [address] [facility] [place], [address], 11/21/2024 07:18:22 11/21/19 25 11/21/2024 COMP. METAB OLIC PANEL (14) globulin, total 3.0 g/dL 1.5-4. 5 Not Available [facility] ([facility]) [address] [facility] [place], [address], 11/21/2024 07:18:22 11/21/19 25 11/21/2024 COMP. METAB OLIC PANEL (14) bilirubin, total 1.4 mg/dL 0.0-1. 2 above high normal Not Available [facility] ([facility]) [address] [facility], [place], [address], 11/21/2024 07:18:22 11/21/19 25 11/21/2024 COMP. METAB OLIC PANEL (14) alkaline phosphatase 88 IU/L 44-121 Not Available [facility] ([facility]) [address] [facility] [place], [address], 11/21/2024 07:18:22 11/21/19 25 11/21/2024 COMP. METAB OLIC PANEL (14) AST (SGOT) 41 IU/L 0-40 above high normal Not Available [facility] ([facility]) [address] [facility] [place], [address], 11/21/2024 07:18:22 11/21/19 25 11/21/2024 COMP. METAB OLIC PANEL (14) ALT (SGPT) 52 IU/L 0-44 above high normal Not Available [facility] ([facility]) [address] [place], [address], 11/21/2024 07:18:22 11/21/19 25 11/21/2024 VITAM IN B12 AND FOLAT E vitamin B12 323 pg/mL 232-12 45 Not Available [facility] ([facility]) [address] [place], [address], 11/21/2024 07:18:24 11/21/19 25 11/21/2024 VITAM IN B12 AND FOLAT E folate (folic acid), serum 7.9 NG/mL >3.0 A serum folat e feng ntrat ion of less than 3.1 ng/mL is consi dered to repre sent clini laura defic iency . Not Available [facility] ([facility]) [address] [place], [address], 11/21/2024 07:18:24 11/21/19 25 11/21/2024 HEMOG LOBIN A1C hemoglobin A1C 7.1 % 4.8-5. 6 above high normal Predi abete s: 5.7 - 6.4 Diabe tuan: >6.4 Glyce amadeo contr ol for adult s with diabe tuan: <7.0 Not Available [facility] ([facility]) [address] [place], [address], 11/21/2024 07:18:25 11/21/19 25 11/21/2024 CBC WITH DIFFE RENTI AL/PL ATELE T WBC 7.8 x10e3 /uL 3.4-10 .8 Not Available [facility] ([facility]) [address] [place], [address], 11/21/2024 07:18:26 11/21/19 25 11/21/2024 CBC WITH DIFFE RENTI AL/PL ATELE T RBC 5.47 x10e6 /uL 4.14-5 .80 Not Available [facility] ([facility]) [address] [place], [address], 11/21/2024 07:18:26 11/21/19 25 11/21/2024 CBC WITH DIFFE RENTI AL/PL ATELE T hemoglobin 15.7 g/dL 13.0-1 7.7 Not Available [facility] ([facility]) [address] [facility], [place], [address], 11/21/2024 07:18:26 11/21/19 25 11/21/2024 CBC WITH DIFFE RENTI AL/PL ATELE T hematocrit 49.4 % 37.5-5 1.0 Not Available [facility] ([facility]) [address] [facility], [place], [address], 11/21/2024 07:18:26 11/21/19 25 11/21/2024 CBC WITH DIFFE RENTI AL/PL ATELE T MCV 90 fL 79-97 Not Available [facility] ([facility]) [address] [facility], [place], [address], 11/21/2024 07:18:26 11/21/19 25 11/21/2024 CBC WITH DIFFE RENTI AL/PL ATELE T MCH 28.7 pg 26.6-3 3.0 Not Available [facility] ([facility]) [address] [facility], [place], [address], 11/21/2024 07:18:26 11/21/19 25 11/21/2024 CBC WITH DIFFE RENTI AL/PL ATELE T MCHC 31.8 g/dL 31.5-3 5.7 Not Available [facility] ([facility]) [address] [facility], [place], [address], 11/21/2024 07:18:26 11/21/19 25 11/21/2024 CBC WITH DIFFE RENTI AL/PL ATELE T RDW 12.8 % 11.6-1 5.4 Not Available [facility] ([facility]) [address] [facility], [place], [address], 11/21/2024 07:18:26 11/21/19 25 11/21/2024 CBC WITH DIFFE RENTI AL/PL ATELE T platelets 222 x10e3 /uL 150-45 0 Not Available [facility] ([facility]) [address] [facility], [place], [address], 11/21/2024 07:18:26 11/21/19 25 11/21/2024 CBC WITH DIFFE RENTI AL/PL ATELE T neutrophils 62 % notest ab. Not Available [facility] ([facility]) [address] [facility], [place], [address], 11/21/2024 07:18:26 11/21/19 25 11/21/2024 CBC WITH DIFFE RENTI AL/PL ATELE T lymphs 27 % notest ab. Not Available [facility] ([facility]) [address] [facility], [place], [address], 11/21/2024 07:18:26 11/21/19 25 11/21/2024 CBC WITH DIFFE RENTI AL/PL ATELE T monocytes 8 % notest ab. Not Available [facility] ([facility]) [address] [facility], [place], [address], 11/21/2024 07:18:26 11/21/19 25 11/21/2024 CBC WITH DIFFE RENTI AL/PL ATELE T eos 2 % notest ab. Not Available [facility] ([facility]) [address] [facility], [place], [address], 11/21/2024 07:18:26 11/21/19 25 11/21/2024 CBC WITH DIFFE RENTI AL/PL ATELE T basos 1 % notest ab. Not Available [facility] ([facility]) [address] [facility], [place], [address], 11/21/2024 07:18:26 11/21/19 25 11/21/2024 CBC WITH DIFFE RENTI AL/PL ATELE T neutrophils (absolute) 4.8 x10e3 /uL 1.4-7. 0 Not Available [facility] ([facility]) [address] [facility], [place], [address], 11/21/2024 07:18:26 11/21/19 25 11/21/2024 CBC WITH DIFFE RENTI AL/PL ATELE T lymphs (absolute) 2.1 x10e3 /uL 0.7-3. 1 Not Available [facility] ([facility]) [address] [facility], [place], [address], 11/21/2024 07:18:26 11/21/19 25 11/21/2024 CBC WITH DIFFE RENTI AL/PL ATELE T monocytes(ab solute) 0.7 x10e3 /uL 0.1-0. 9 Not Available [facility] ([facility]) [address] [facility], [place], [address], 11/21/2024 07:18:26 11/21/19 25 11/21/2024 CBC WITH DIFFE RENTI AL/PL ATELE T eos (absolute) 0.2 x10e3 /uL 0.0-0. 4 Not Available [facility] ([facility]) [address] [facility], [place], [address], 11/21/2024 07:18:26 11/21/19 25 11/21/2024 CBC WITH DIFFE RENTI AL/PL ATELE T baso (absolute) 0.1 x10e3 /uL 0.0-0. 2 Not Available [facility] ([facility]) [address] [facility], [place], [address], 11/21/2024 07:18:26 11/21/19 25 11/21/2024 CBC WITH DIFFE RENTI AL/PL ATELE T immature granulocytes 0 % notest ab. Not Available [facility] ([facility]) [address] [facility], [place], [address], 11/21/2024 07:18:26 11/21/19 11/21/2024 CBC WITH DIFFE RENTI AL/PL ATELE T immature grans (abs) 0.0 x10e3 /uL 0.0-0. 1 Not Available [facility] ([facility]) [address] [facility], [place], [address], 11/21/2024 07:18:26 11/21/19 25 11/21/2024 PROST ATE-S PECIF IC AG prostate specific Ag 0.2 NG/mL 0.0-4. 0 Tanner ECLIA metho dolog y. Accor ding to the Ameri can Urolo gical Assoc iatio n, Serum PSA shoul d decre ase and remai n at undet ectab le level s after radic al prost atect daphnie. The AUA defin es bioch emica l recur rence as an initi al PSA value 0.2 ng/mL or great er follo wed by a subse quent confi rmato ry PSA value 0.2 ng/mL or great er. Value s obtai flavio with diffe rent assay metho ds or kits canno t be used inter barrera eably . Resul ts canno t be inter prete d as absol benton evide nce of the prese nce or absen ce of migue [place] se. Not Available [facility] ([facility]) [address] [facility], [place], [address], 11/21/2024 07:18:27 07/04/2007/04/2025 COLOG UARD cologuard result reportable NEGATI [...] ant featu res) is prese nt. The chanc e that a perso n with a [...] of 10,00 0 indiv idual s at [facility] for color ectal cance r who were scree flavio with both Colog uard and colon oscop y. (Roshan Blair. et al, N Engl J Med 2014; 370(1 4):12 86-12 97) The jennifer l value (refe rence range ) for this assay is negat khadar. COLOG UARD RE-SC REENI NG RECOM MENDA TION: Perio dic color ectal cance r scree apoorva is an impor tant part of preve ntive healt hcare for asymp tomat ic indiv idual s at [place] [facility] risk for color ectal cance r. Follo wing a negat khadar Colog uard resul t, the Ameri can Cance r Socie ty and U.S. Multi -Soci ety Task Force scree apoorva guide lines recom mend a Colog uard re-sc reeni ng inter genet of 3 years . Refer ences : Ameri can Cance r Socie ty Guide line for Color ectal Cance r Scree apoorva: https ://triny w.can cer.o rg/ca ncer/ colon -rect al-ca ncer/ detec tion- diagn osis- stagi ng/ac s-rec ommen datio ns.ht ml.; Aj HAMILTON, Jolene garza CR, Julio Cesar JuradoK, Color ectal Cance r Scree apoorva: Recom menda tions for Physi cians and Patie nts from the U.S. Multi -Soci ety Task Force on Color ectal Cance r Scree apoorva , Maia morrison y 2017; 112:1 016-1 030. TEST DESCR IPTIO N: Streator site algor ithmi c shreya sis of [...] years or older , who are at [facility] for color ectal cance r ([facility]) . Colog uard has been appro nhi for use by the U.S. FDA. The perfo rmanc e of Colog uard was estab lishe d in a cross secti onal study of [facility] adult s aged 50-84 . Colog [...] of 10,00 0 indiv idual s at [facility] risk for color ectal cance r who [...] uard perfo rmanc e data in a 0 patie nt pivot al study using colon oscop y as the refer ence metho d can be acces sed at the [facility] wing locat ion: www.e xactl abs.c om/re saida . Addit ional descr iptio n of the Colog uard test proce ss, warni ngs and preca ution s can be found at www.c michaela robert.c om. Not Available [facility] [address], [place], [address], 07/09/2025 11:07:00 03/08/20 25 02/27/2025 CT, abdom en + pelvi s, w/ contr ast No observ ation record ed. [facility] [address], [place], [address], 03/11/2025 12:17:51 Result Notes None recorded. Problems Name Problem SNOMED Code Status Onset Date Resolution Date Notes Provider Name and Address Organization Details Recorded Time Type 2 diabetes mellitus 81004279 Active 2023 Chelsi Foster null, [place] - [facility] 4 13:00:05 Atrial fibrillation 51527094 Active 2023 Chelsi [place] [facility] 4 13:00:12 Asthma 139297546 Active 2023 Chelsi [place] [facility] 4 13:00:18 Erectile dysfunction 982123914 Active 2023 Chelsi [place] [facility] 4 13:00:28 Body mass index 40+ - severely obese 774924695 Active 2023 DIOMEDES Hallman Attn: Claudio durham,[address] [place], [address], [place] [facility] 4 10:54:02 Morbid obesity 246748871 Active 2023 DIOMEDES Hallman Attn: Claudio durham,[address] [place], [address], [place] [facility] 4 10:54:02 Hyperlipidemia 59730605 Active 2023 DIOMEDES Hallman Attn: Claudio durham,[address] [facility], [place], [address], [place] [facility] 4 10:55:07 Well controlled type 2 diabetes mellitus 221452001 Active 2023 DIOMDEES Hallman Attn: Claudio durham,[address] [facility], [place], [address], [place] [facility] 4 10:55:10 Obese class III 506318760 Active 2024 DIOMEDES Hallman Attn: Claudio durham,[address] [facility], [place], [address], [facility] - [facility] 5 16:11:37 Problem Notes None recorded. Procedures Surgical History Date Name Laterality Status Provider Name and Address Organization Details Recorded Time Vasectomy completed Sandoval Griffin [place] - [facility] 10/11/2023 10:08:11 Imaging Results None recorded. Procedure [...] Available Not Avai lable Vitals Date Recorded Systolic And Diastolic Provider Name and Address Organization Details Last Updated DateTime 10/11/2023 124/80 mm[Hg] DIOMEDES Hallman Attn: Accounting,[address] [place], [address], [place] - [facility] 10/11/2023 10:20:53 Date Recorded Body height Heart rate Respiratory rate Oxygen saturation Body mass index (BMI) Body weight Systolic And Diastolic Provider Name and Address Organization Details Last Updated DateTime 4 172.72 cm 73 /min 18 /min 96 % 40.1 kg/m2 828320. 39 g 119/75 mm[Hg] Sandoval Griffin MA [facility] 4 09:50:09 Date Recorded Respiratory rate Systolic And Diastolic Provider Name and Address Organization Details Last Updated DateTime 10/17/2024 16 /min 110/80 mm[Hg] DIOMEDES Hallman Attn: Accounting,[address] [place], [address], [facility] 10/17/2024 15:05:23 Date Recorded Body height Body mass index (BMI) Body weight Oxygen saturation Heart rate Systolic And Diastolic Provider Name and Address Organization Details Last Updated DateTime 5 172.72 cm 40.4 kg/m2 686206. 57 g 96 % 99 /min 138/82 mm[Hg] Sandoval Griffin MA [facility] 5 14:40:38 Date Recorded Respiratory rate Systolic And Diastolic Provider Name and Address Organization Details Last Updated DateTime 01/17/2025 16 /min 120/80 mm[Hg] DIOMEDES Hallman Attn: Accounting[address] [place], [address], [facility] 01/17/2025 16:14:59 Date Recorded Body height Body mass index (BMI) Body weight Oxygen saturation Heart rate Systolic And Diastolic Provider Name and Address Organization Details Last Updated DateTime 5 172.72 cm 40.4 kg/m2 375254. 57 g 97 % 62 /min 140/82 mm[Hg] Sandoval Griffin MA [facility] 5 15:54:59 Date Recorded Respiratory rate Systolic And Diastolic Provider Name and Address Organization Details Last Updated DateTime 04/24/2025 18 /min 120/82 mm[Hg] DIOMEDES Hallman Attn: Accounting[address] [place], [address], [facility] 04/24/2025 14:18:30 Date Recorded Body height Body mass index (BMI) Body weight Oxygen saturation Heart rate Systolic And Diastolic Provider Name and Address Organization Details Last Updated DateTime 5 172.72 cm 39.7 kg/m2 340578. 61 g 96 % 80 /min 126/82 mm[Hg] Sandoval Griffin MA [facility] 5 13:54:02 Date Recorded Body height Body mass index (BMI) Body weight Heart rate Oxygen saturation Systolic And Diastolic Provider Name and Address Organization Details Last Updated DateTime 4 172.72 cm 40.3 kg/m2 017444. 7 g 83 /min 96 % 122/72 mm[Hg] Alice Nassar MA [facility] 4 10:40:41 Social History Question Answer Notes LastModified by Organizat ion Details LastModified Time Tobacco Smoking Status Former Smoker Sandoval Griffin MA [facility] 10/11/2023 09:55:46 Are You Blind Or Do [...] Response Coronary Artery Disease N Other N High Blood Pressure Y Atrial Fibrillation N Thyroid Problems N Kidney or Bladder Problems N Depression N COPD N Blood Clots N GI Problems N Skin Problems N Anemia N Heart Attack (OR) N Diabetes Y Anxiety Disorder N Muscle, Joint, or Bone Problems N Seizures/Epilepsy N Acid Reflux (GERD) N Cancer N Stroke N Allergies N Asthma Y High Cholesterol N Hepatitis N Liver Disease N Headaches N Osteoporosis N Heart Failure Y Immunizations Vaccine Type Date Status Note Provider Huber doan and Address Organization Details Recorded Time COVID-19, mRNA, LNP-S, PF, 30 mcg/0.3 mL dose 08/13/2021 completed Sandoval Griffin [place], [place] [facility] 05/24/2024 11:18:06 COVID-19, mRNA, LNP-S, PF, 30 mcg/0.3 mL dose 09/10/2020 completed Sandoval [place], [place] [facility] 05/24/2024 11:18:06 COVID-19, mRNA, LNP-S, PF, 30 mcg/0.3 mL dose 10/08/2020 completed Sandoval [place], [place] [facility] 05/24/2024 11:18:06 influenza, unspecified formulation 04/29/2024 completed DIOMEDES Hallman Attn: Accounting,[address] [place], [address], [place] [facility] 05/27/2024 11:07:29 Past Encounters Encounter ID Performer Location Encounter Start Date Encounter Closed Date Diagnosis/Indication Diagnosis SNOMED-CT Code Diagnosis ICD10 Code Diagnosis IMO Codes Diagnosis Note [id number] Aman Obando MD [facility] [address] [place] [address] 10/11/2023 09:27:50 10/11/2023 12:59:39 Adult health examination 529107726 Z00.01 well exam completed Well contr olled type 2 diabetes mellitus 393830692 E11.9 Pt is stable on multiple medication s. due for updated a1c lab Atrial fibrillation 4943 6004 I48.91 stable on CCB and anticoagul ant; UTD with cardiology appt. Dr. Donnelly at [facility] Asthma 981532831 J45.90 9 stable. no acute flare ups. on singulair 10mg daily and PRN albuterol hfa. Long-term drug therapy 434455938 Z79.899 all routine labs are due. Screening for malignant neoplasm of prostate [id number] Z12.5 annual psa due Thyroid di sorder screening [id number] Z13.29 thyroid panel due for annual evaluation . Hyperlipidemia 39624111 E78.5 stable on atorvastat in 20mg daily. due for fasting lipid panel. Erectile dysfunction 860 695581 F52.21 refill on sildenafil 100mg PRN use. [id number] Aman Obando [facility] [employer] [address] [place] [id number] 05/27/2024 10:28:42 05/27/2024 11:47:12 Morbid obesity 415552604 E66.01 discussed healthy diet, exercise, controllin g carbohydra tuan and added sugars in the diet Body mass index 40+ - severely obese 973990922 Z68.41 discussed healthy diet, exercise, controllin g carbohydra tuan and added sugars in the diet Well contr olled type 2 diabetes mellitus 093083564 E11.9 Pt is stable on multiple medication s. due for updated a1c lab, last labs were 6.3% Atrial fibrillation 4943 6004 I48.91 stable on CCB and anticoagul ant; UTD with cardiology appt. Dr. Donnelly at [facility] Hyperlipidemia 19436747 E78.5 stable on atorvastat in 20mg daily. due for fasting lipid panel. Last lipid panel was in great range besides a low HDL of 34. Asthma 470557358 J45.90 9 stable. no acute flare ups. on singulair 10mg daily and PRN albuterol hfa. Erectile dysfunction 860 641818 F52.21 on sildenafil 100mg PRN use. Long-term drug therapy 031709834 Z79.899 all routine labs are due. [id number] Aman Obando MD [facility] [employer] [address] [place] [id number] 10/17/2024 14:03:17 10/17/2024 15:06:33 Body mass index 40+ - severely obese 290227705 Z68.41 discussed healthy diet, exercise, controllin g carbohydra tuan and added sugars in the diet Morbid obesity 772105312 E66.01 discussed healthy diet, exercise, controllin g carbohydra tuan and added sugars in the diet Well contr olled type 2 diabetes mellitus 801052567 E11.9 Pt is stable on multiple medication s. due for updated a1c lab, last labs were 6.3% Atrial fibrillation 4943 6004 I48.91 stable on CCB and anticoagul ant; UTD with cardiology appt. Dr. Donnelly at [facility] Hyperlipidemia 07627867 E78.5 stable on atorvastat in 20mg daily. due for fasting lipid panel. Last lipid panel was in great range besides a low HDL of 34. Asthma 636415139 J45.90 9 stable. no acute flare ups. on singulair 10mg daily and PRN albuterol hfa. Erectile dysfunction 860 084943 F52.21 on sildenafil 100mg PRN use. Long-term drug therapy 952160981 Z79.899 all routine labs are due. Adult heal th examination 676388104 Z00.01 well exam completed Screening for malignant neoplasm of prostate 378520199 Z12.5 annual psa due [id number] Aman Obando MD [facility] [employer] [address] [email or web address] [id number] 01/17/2025 15:17:58 01/20/2025 12:14:53 Body mass index 40+ - severely obese 147509758 Z68.41 discussed healthy diet, exercise, controllin g carbohydra tuan and added sugars in the diet Obese class III 23086222 5 E66.813 8082555064 discussed healthy diet, exercise, controllin g carbohydra tuan and added sugars in the diet Umbilical pain 48824409 R10.33 03197 As above Reducible umbilical hernia 654170162 K42.9 [id number] Reducible hernia noted supraumbil ical. Send for CT abdomen and pelvis with contrast [id number] Aman Obando MD [facility] [employer] [address] [email or web address] [id number] 04/24/2025 13:42:55 04/30/2025 15:33:40 Obese class II [id number] 74952 E66.812 E66.3 7564600770 discussed healthy diet, exercise, controllin g carbohydra tuan and added sugars in the diet Well contr olled type 2 diabetes mellitus 887309899 E11.9 Pt is stable on multiple medication s. due for updated a1c lab. A1c in November was 7.1%. Albumin urine testing also do Atrial fibrillation 4943 6004 I48.91 stable on CCB and anticoagul ant; UTD with cardiology appt. Dr. Donnelly at [facility] Hyperlipidemia 05799619 E78.5 stable on atorvastat in 20mg daily. due for fasting lipid panel. LDL on last labs was 74 HDL has dropped to 30 triglyceri madai at 176 total at 134 Asthma 885849878 J45.90 9 stable. no acute flare ups. on singulair 10mg daily and PRN albuterol hfa. Erectile dysfunction 860 357743 F52.21 on sildenafil 100mg PRN use. Long-term drug therapy 741151375 Z79.899 all routine labs are due. Screening for malignant neoplasm of colon 258314311 Z12.11 200018 Patient opts for Cologuard screening method Health Concerns Section Related Observation LastModified by Organization Detai ls LastModified Time None Recorded Concern Status LastModified by Organization Details LastModified Time None Recorded Advance Directives Directive None Recorded Payers Insurance Date Sequence Insurance Name Policy Number Policy Rodriguez Covered Member ID Rodriguez Member ID Guarantor Name 05/07/[address] [facility] [id number] Luan Lund [id number] Luan Lund 10/17/[address] [facility] (MEDICARE REPLACEMENT/ ADVANTAGE - HMO) [id number] Luan Lund [id number] Luan Lund Notes Date Note Type Note Provider Name and Address Organization Details Recorded Time 4 text/html HyperlipidemiaReported by Patientstable on atorvastatin 20mg [...] as well. DIOMEDES Hallman Attn: Accounting,[address] [facility], [place], [address], [facility] 10/22/2023 13:33:16 4 text/html HyperlipidemiaReported by Patientstable on atorvastatin 20mg [...] as well. DIOMEDES Hallman Attn: Accounting,[address] [facility], [place], [address], [facility] [place] [place] 05/27/2024 11:08:25 5 text/html HyperlipidemiaReported by Patientstable on atorvastatin 20mg [...] as well. DIOMEDES Hallman Attn: Accounting,[address] [facility], [place], [address], [facility] 11/04/2024 23:27:53 5 text/html Patient presents to have his umbilical hernia. He thinks that he aggravated it by cleaning the umbilical region because it has been tender and was little irritated. Today does seem to be a little bit better he just wants to have it checked out. DIOMEDES Hallman Attn: Accounting,[address] [facility], [place], [address], [facility] 02/02/2025 16:04:48 5 text/html HyperlipidemiaReported by Patientstable on atorvastatin 20mg [...] as well. DIOMEDES Hallman Attn: Accounting[address] [place], [address], [facility] 05/06/2025 13:33:24
--- OUTSIDE RECORDS SUMMARY | 2025-07-22 00:22 | XMS_ITS | Patient Health Record ---
Author Organization [facility] Address [address] [place], [place] [id number] Care Team Providers Care Catalog Specialist Name Role Phone SHIV MCGREGOR Unavailable [phone] Emani Hurd Unavailable Unavailable Reason For Referral No Information Medications Medication SIG (Take, Route, Frequency, Duration) Notes Start Date End Date Status [id number] 200 ACTUAT albuterol 0.09 MG/ACTUAT Metered Dose Inhaler [ProAir] INTRAPULMONARY [id number] 200 ACTUAT albuterol 0.09 MG/ACTUAT Metered Dose Inhaler [ProAir]Original [id number] 200 ACTUAT albuterol 0.09 MG/ACTUAT Metered Dose Inhaler [ProAir] *Reorder from [facility] for eRx and Inter 05/17/2021 Active Medrol Dosepak ORAL Medrol DosepakOr iginal MedicationMedrol Dosepak [facility] and Interaction Alerts* 05/17/2021 Active Social History Social History Additional Details Category Social Info Options Details Migrated Social History Migrated Social History History of tobacco use : , Smoking Status : Former tobacco user Plan Of Treatment No Information Insurance Providers Payer Name Payer Address Payer Phone Subscriber Number Group Number Insured Name Patient Relationship to Insured Coverage Start Date Coverage End Date [facility] ([facility] ATTN CLAIMS [address] [place] [address] [id number] BEAU CARL Self - patient is the insured
--- OUTSIDE RECORDS SUMMARY | 2025-07-22 00:22 | XMS_ITS | Clinical Summary ---
Author Organization [facility] Address [address] [place] [address] Phone Care Team Providers Care Top Closer Name Role Phone Unavailable Primary Care Provider Unavailabl e Allergies No known active allergies Medications atorvastatin (LIPITOR) 20 mg tablet Take 1 Tablet (20 mg) by mouth daily at NIGHT. 30 Tablet 3 Active empagliflozin (JARDIANCE) 10 mg tablet Take 1 Tablet (10 mg) by mouth daily. 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 30 Tablet 11 01/17/2023 5:35 PM CDT 2 Active montelukast (SINGULAIR) 10 mg tablet Take 1 Tablet (10 mg) by mouth daily. 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 9 Tablet 3 3 Active glimepiride (AMARYL) 1 mg tablet Take 1 Tablet (1 mg) by mouth 2 times daily with meals. 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 21 Tablet 03/28/2023 4:44 PM CDT 3 Active atorvastatin (LIPITOR) 20 mg tablet TAKE 1 TABLET BY MOUTH EVERY DAY AT NIGHT 30 Tablet 3 04/16/2023 10:23 AM CDT 3 Active diltiaZEM (CARDIZEM CD) 240 mg Controlled Delivery 24 hour capsule Take 1 Capsule (240 mg) by mouth daily. 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
[2025-07-22] MEDS: LACTATED RINGERS 1,000 ML 30 ML IV CONT ×2 (06:45→09:24)
[2025-07-22] MEDS: KETOROLAC 15 MG/ML VIAL (*BKC) IV PUSH (07:00)
[2025-07-22] MEDS: ACETAMINOPHEN 500 MG TABLET 1000 MG PO (07:00)
--- NOTE | 2025-07-22 07:10 | PM.PNGS ---
Progress Note: A&P Assessment and Plan (1) Umbilical hernia: Qualifiers: Obstruction and gangrene presence: without obstruction or gangrene Qualified Code(s): K42.9 - Umbilical hernia without obstruction or gangrene Code(s): K42.9 - Umbilical hernia without obstruction or gangrene Status: Acute Assessment and Plan: I have recommended laparoscopic umbilical hernia repair with mesh, da Adela assisted. I have discussed the procedure, risks, benefits, and alternatives with the patient. All questions answered. No changes since last seen in office. Subjective Subjective Date/Time Seen: 07/22/25 07:10 Interval history: 54 yo man presents for umbilical hernia repair. He reports no changes since last seen in office. Review of Systems Review of Systems: All systems reviewed & are unremarkable except as noted in HPI and below Constitutional: Constitutional: Denies chills, Denies fever(s), Denies headache(s) and Denies weight loss Eyes: Eyes: Denies change in vision ENT: Denies dizziness, Denies headache(s), Denies neck mass and Denies throat swelling Cardiovascular: Cardiovascular: Denies chest pain, Denies lightheadedness and Denies dyspnea Respiratory: Respiratory: Denies cough, Denies dyspnea and Denies wheezing Gastrointestinal: Gastrointestinal: Denies abdominal pain, Denies change in bowel habits, Denies nausea and Denies vomiting Genitourinary: Genitourinary: Denies hematuria and Denies dysuria Musculoskeletal: Musculoskeletal: Reports as per HPI Integumentary/Breasts: Skin/Breast: Reports as per HPI Neurologic: Denies dizziness and Denies headache(s) Allergic/Immunologic: Allergic/Immunologic: Denies throat swelling and Denies wheezing Exam Const: General: no acute distress and alert Orientation/consciousness: patient oriented x3 HENMT: Head: normocephalic and atraumatic Ears: hearing grossly normal bilaterally Face/Nose/Sinus: Normal nares present Mouth: Yes Normal oral and palatal mucosa present Eyes: Periorbital: periorbital findings normal Sclera: sclerae normal EOM: EOMs intact bilaterally Neck: Neck: normal visual inspection, no lymphadenopathy and trachea midline Chest: Chest palpation & inspection: normal inspection of the chest Resp: Effort & Inspection: normal respiratory effort Auscultation: clear to auscultation bilaterally Cardio: Jugular venous distension: no JVD Rate: regular rate Rhythm: regular rhythm Heart sounds: S1 normal heart sound present and S2 normal heart sound present Peripheral pulses: Peripheral pulses 2+ throughout GI: Inspection: normal to inspection GI Palp: Yes Soft to palpation, No Tenderness to palpation present (GI), No Guarding due to palpation present (GI), Yes Hernia present umbilical 3-10 cm and No Rebound tenderness present Percussion: Yes normal to percussion Auscultation: normal bowel sounds : General: Yes no CVA tenderness Back/Spine/Pelvis: Back: no CVA tenderness Neuro: General: patient oriented x3, no focal motor deficits and CN's II-XI intact bilaterally Cognition (Neuro): normal cognition Speech: normal speech Motor exam (neuro): 5/5 motor strength present throughout Extrem: General: capillary refill normal and no clubbing, cyanosis or edema Objective Data Meds/Results Medications: Active Medications Generic Name Dose Route Start Last Admin Trade Name Freq PRN Reason Stop Dose Admin Fentanyl Citrate 25 mcg 07/21/25 16:03 Fentanyl Citrate Inj (*Crx) 100 Mcg/2 Ml Vial IV PUSH Q2M PRN Pain Lactated Ringer's 1,000 mls @ 30 mls/hr 07/21/25 16:05 Lr - Lactated Ringers Iv IV CONT .Q24H MARCUS Lactated Ringer's 1,000 mls @ 30 mls/hr 07/21/25 16:05 Lr - Lactated Ringers Iv IV CONT .Q24H MARCUS Ondansetron HCl 4 mg 07/21/25 16:03 Ondansetron Inj 4 Mg/2 Ml Vial IV PUSH ONCE PRN Nausea Oxycodone HCl 5 mg 07/21/25 16:03 Oxycodone Hcl (*Crx) 5 Mg Tab Ir PO ONCE PRN Pain
--- NOTE | 2025-07-22 07:11 | WPDHPUPDATE1 ---
History and Physical Update Update Date/Time: 07/22/25 07:11 History and Physical has been reviewed, including an updated exam of the patient. There are NO changes in the patient's condition. Risks, benefits, and alternatives have been discussed and questions answered. Patient agrees to proceed with procedure.
--- NOTE | 2025-07-22 07:26 | WPDANESEPPF ---
Anes - Initial Pre Proc Eval Procedure: Operation Date: 07/22/25 07:30 Proposed Procedures p Laparoscopic Umbilical Hernia Repair with Mesh, Shankar Duffysted - Sameer Gomez DO Date/Time: 07/22/25 07:26 Surgeon: Sameer Gomez DO Pre Op Diagnosis: Umb Hernia / 3 cm Patient Data Age: 54 Gender: M Height: 1.73 m Weight: 119.7 kg Allergies Allergy/AdvReac Type Severity Reaction Status Date / Time No Known Allergies Allergy Verified 07/22/25 06:23 Home Medications ?Medication ?Instructions ?Recorded ?Confirmed ?Type apixaban 5 mg tablet (Eliquis) 10 mg PO ONCE 04/17/25 07/18/25 History Held on 07/18/25. Instructions: .Provider Order diltiazem HCl 240 mg 240 mg PO QHS 04/17/25 07/18/25 History capsule,extended release 24 hr (Cardizem CD) glimepiride 2 mg tablet 2 mg PO QAM 04/17/25 07/18/25 History lisinopril 20 mg tablet 20 mg PO DAILY 04/17/25 07/18/25 History magnesium 200 mg tablet 800 mg PO DAILY 04/17/25 07/18/25 History metformin 1,000 mg tablet 1,000 mg PO DAILY 04/17/25 07/18/25 History montelukast 10 mg tablet 10 mg PO DAILY 04/17/25 07/18/25 History (Singulair) empagliflozin 10 mg tablet 10 mg PO DAILY 07/18/25 07/18/25 History (Jardiance) sildenafil 100 mg tablet 100 mg PO Q24H PRN sexual activity 07/18/25 07/18/25 History Laboratory Tests 07/22/25 07/22/25 07:00 07:08 Sodium Pending Potassium Pending Chloride Pending Carbon Dioxide Pending Anion Gap Pending BUN Pending Creatinine Pending Estim Creat Clear Calc Pending Estimated GFR Pending Glucose Pending POC Capillary Glucose 118 H mg/dl (65-105) Calcium Pending Blood Type Pending Antibody Screen Pending Patient hx anesthesia problems: none Family hx anesthesia problems: none Results Review: All pre-operative results and documents have been reviewed as part of the pre-operative evaluation. [facility] Past Medical History Medical History (Updated 09/15/25 @ 16:20 by Sameer Gomez DO) Hx of essential hypertension Hx of diabetes mellitus History of asthma Surgical History Surgical History Hx of vasectomy Family History Family History Father Alcoholism in family Diabetes mellitus Hypertension Heart problem Mother Cancer Thyroid disorder Other Cerebrovascular accident Social History Social History Smoking status: Never smoker Tobacco type: cigarettes Second hand tobacco smoke exposure: Yes Alcohol intake: never Substance use: never Living arrangements: with family Additional living arrangements comments: Occupation/Education: occupation Additional occupation/education comments: [employer] Spiritual care concerns: No Anes - Eval Final PreProcedure Day of Procedure 07/22/25 07:26 Patient weight: morbidly obese Heart: regular rate and rhythm Lungs: clear to auscultation Airway: Mallampati scale class III Neurological: alert and oriented Last oral intake: >/= 8 hours ASA classification: III Emergent: no Anesthetic plan: proceed Anesthesia type and monitoring: general ETT and standard monitoring Results Review: All pre-operative results and documents have been reviewed as part of the pre-operative evaluation. Informed Consent: The patient's anesthetic plan and its attendant risks and benefits were discussed with the patient/family/POA. Questions were solicited and answers provided to the satisfaction of the patient/family/POA.
[2025-07-22 07:31] LABS: Anion Gap 7 mmol/L (4-12); Blood Urea Nitrogen 22 mg/dL (9-20); Calcium 9.1 mg/dL (8.4-10.2); Carbon Dioxide 26 mmol/L (22-30); Chloride 103 mmol/L (98-107); Estimated CRCL calculation 107 ml/min; Estimated Glomerular Filt Rate > 60; Glucose 120 mg/dL (65-110); Potassium 4.6 mmol/L (3.4-5.0); Sodium 136 mmol/L (137-145)
[2025-07-22] MEDS: ceFAZolin 2 GM in SODIUM CHLORIDE 0.9% IV 50 ML 100 ML IVPB (07:32)
[2025-07-22] MEDS: BUPIVACAINE/EPINEPHRINE 0.5% 50 ML VIAL 30 ML INFILTRATE (08:02)
--- NOTE | 2025-07-22 09:14 | W.PM.PROC2 ---
Procedure Note - Detailed Date of Procedure 07/22/25 Pre-op Diagnosis Umbilical hernia Post-op Diagnosis Same (3 cm umbilical hernia) Procedure Performed Laparoscopic 3 cm umbilical hernia repair with mesh, da Adela assisted Surgeon Sameer Gomez, Anesthesia General and Local (0.5% bupivacaine with epinephrine) Indications This is a 54-year-old man who presented with an umbilical hernia that he 1st noticed about 4 months ago. He noticed a bulge and had some slight discomfort. A CT showed evidence of a fat containing umbilical hernia. Discussions were made with the patient about treatment options and decision was made to proceed with robotic assisted laparoscopic umbilical hernia repair with mesh. Findings Robotic assisted laparoscopic 3 cm umbilical hernia repair with mesh was performed. The patient was found to have a 3 cm umbilical hernia containing some omentum and preperitoneal fat. The hernia contents were reduced. A robotic transabdominal preperitoneal approach was utilized for repair. Once a wide enough preperitoneal pocket was created and the hernia sac was reduced, the hernia was then closed using 0 Stratafix running absorbable suture and a 15 cm x 10 cm Bard soft mesh was placed. No specimens were obtained for pathology. Description of Procedure Procedure as well as risks, benefits, and alternatives were discussed with the patient. Written consent was obtained and placed in chart prior to procedure. Patient was brought back to surgical suite. He was placed supine on operating table. Time-out was done to confirm patient and procedure. He was then intubated by the anesthesia department. A bump was placed under his left hip, and the bed was flexed slightly to extend the space between his costal margin and iliac crest. His abdomen was prepped and draped in sterile fashion using chlorhexidine prep. A 5 millimeter incision was made in the left upper quadrant, and a 5 millimeter Optiview trocar was advanced through the abdominal layers under direct visualization. Once inside the abdominal cavity, carbon dioxide insufflation was used to create a pneumoperitoneum. His abdomen was inspected. An 8 millimeter incision was made in the left lower quadrant, and an 8 millimeter robotic trocar was placed under direct visualization. Another 8 millimeter incision was made in the left lateral abdomen, and an 8 millimeter robotic trocar was placed under direct visualization. 0.5% bupivacaine with epinephrine was infiltrated around each port site. The 5 millimeter port was removed, and an 8 mm robotic trocar was placed under direct visualization. The robotic arms were brought up to the patient's bedside and secured to the ports. The camera and instruments were inserted, and I then moved over to the robotic console and took control of the camera and instruments. After careful thorough inspection of the abdominal cavity, I began my dissection at the hernia. The omentum was reduced from within the hernia defect using blunt dissection and scissors with electrocautery. I then began creating a preperitoneal plane starting in the left upper quadrant and extending along the left lateral abdomen using scissors with electrocautery. The plane was then dissected medially and the hernia sac and preperitoneal fat was then reduced from within the hernia defect. The plane was then dissected to the right lateral abdomen wide enough for mesh placement. I then measured the hernia size. The hernia measured 3 cm. The fascia was closed using an 0-Stratafix running suture in a vertical fashion. A 15 cm x 10 cm Bard soft mesh was then placed within the preperitoneal pocket. This was oriented vertically with the mesh centered on the hernia defect. The mesh was then secured at the center and 4 corners using 3-0 Vicryl simple interrupted sutures. The peritoneum was then closed over the mesh using 3 0 V lock running absorbable suture. The repair was inspected, and one final inspection was made around the abdominal cavity. The robotic instruments were then removed, and the robotic arms were disengaged from the trocars. The ports were then removed under direct visualization, the camera was removed, and the pneumoperitoneum was released. The skin of the incisions was then approximated using 4-0 Monocryl subcuticular suture. Exofin glue was then applied on top. The patient was then awakened from anesthesia, extubated, and transferred to recovery. Implants Bard soft mesh 15 cm x 10 cm Estimated Blood Loss 5 Complications No immediate complications Condition Stable Disposition Same day [facility] Billing Surgery - Charge Forward: Surgery Billing
[2025-07-22] MEDS: fentaNYL CITRATE INJ (*CRX) 100 MCG/2 ML VIAL 25 MCG IV PUSH ×2 (10:09→10:13)
[2025-07-22] MEDS: oxyCODONE HCL (*CRX) 5 MG TAB IR PO (10:48)
== END 2025-07-22 11:29 | disposition home or self-care (01) ==
PROVIDERS: Anesthesiology; PCP Physician Assistant; Visit Provider Surgery
PROC: (CPT 49593; principal; 2025-07-22 07:30)
DX: K42.9 Umbilical hernia without obstruction or gangrene (principal); E11.9 Type 2 diabetes mellitus without complications; E66.01 Morbid (severe) obesity due to excess calories; Z68.39 Body mass index [BMI] 39.0-39.9, adult
CPT/HCPCS: 49593; S2900; 36415; 80048; 82948; 86850; 86900; 86901; J0690; A9270; C1781; J1100; J1885; J2003; J2250; J2405; J2704; J3010; J7030; J7120